=== PATIENT | male | born 1940 | race Two or more races ===

== ENCOUNTER 2017-11-15 05:45 | Inpatient (IN) | payer MEDICARE, MEDICAID ==
[2017-11-15] VITALS (21 sets, daily range): BP systolic 122–161; BP diastolic 69–105
[~2017-11-15] VITALS: Ht 167.6 cm; Wt 95.3 kg
--- NOTE | 2017-11-15 05:57 | Emergency Room Report ---
History of Present Illness General Chief Complaint: Dyspnea/Respdistress Source: Patient Present Illness HPI Is a 77-year-old female with a history of diabetes, high blood pressure, CVA with left-sided weakness. Patient presents via EMS with chief complaint of shortness of breath. She's been having increasing shortness of breath for about a month but acutely worsened tonight. She can't even lay flat. Worse with exertion. Per EMS she has some decreased breath sound and slight wheezing so they put on the bus a treatment. This helped some. Patient denies any syncope. [place] weak and dizzy however. No nausea no vomiting. No chest pain. Does have chest tightness. Does have increasing weight gain for the last month. Allergies: Coded Allergies: No Known Allergies (Unverified , 11/15/17) Patient History Past Medical History: see triage record, old chart reviewed, DM, HTN Past Surgical History: other Pertinent Family History: none Social History: Denies: smoking Now: No Immunizations: other Reviewed Nursing Documentation: PMH: Agreed; PSxH: Agreed Nursing Documentation-PMH Hx Hypertension: Yes - htn Hx Diabetes: Yes - dm II Hx Cerebrovascular Accident: Yes - cva 6 yr ago Review of Systems Eye: Denies: eye pain, blurred vision ENT: Denies: ear pain, nose congestion, throat swelling Respiratory: Reports: shortness of breath; Denies: cough Cardiovascular: Denies: chest pain, palpitations Gastrointestinal: Denies: abdominal pain, diarrhea, nausea, vomiting Musculoskeletal: Denies: back pain, joint pain Skin: Denies: rash Neurological: Denies: headache, numbness Endocrine: Denies: increased thirst, increased urine Hematologic/Lymphatic: Denies: easy bruising All Other Systems: negative except mentioned in HPI Physical Exam Vital Signs Date Time Temp Pulse Resp B/P (MAP) Pulse Ox O2 Delivery O2 Flow Rate FiO2 11/15/17 05:41 98.0 140 27 160/96 97 Nasal Cannula 98.1 vitals with tachycardia and high blood pressure Sp02 EP Interpretation: abnormal General Appearance: moderate distress, obese Head: normocephalic, atraumatic Eyes: bilateral eye PERRL, bilateral eye EOMI ENT: hearing grossly normal, normal pharynx Neck: full range of motion, supple, no meningismus Respiratory: chest non-tender, respiratory distress, decreased breath sounds, rales Cardiovascular #1: no murmur, tachycardia Gastrointestinal: normal bowel sounds, non tender, no mass, no organomegaly, no bruit, non-distended Musculoskeletal: back normal, normal range of motion, swelling - 2+ edema Neurologic: alert, oriented x3, other - left-sided weakness, chronic Psychiatric: mood/affect normal Skin: warm/dry Procedures Critical Care Time Critical Care Time Critical care is mandated in this patient who presented with rapid A. fib/ flutter with CHF. Patient require my urgent intervention to attenuate the risks of metabolic collapse which may lead to cardiovascular collapse and . Critical care time is 35 minutes excluding any reportable procedure. Critical care time included evaluation, multiple reevaluation, looking at old charts, interpreting laboratory and diagnostic data, discussing case with patient and family and consultants, and charting. Medical Decision Making Diagnostic Impression: Primary Impression: Rapid atrial fibrillation Additional Impressions: Acute exacerbation of CHF (congestive heart failure) Qualified Codes: I50.9 - Heart failure, unspecified Hypertension Qualified Codes: I10 - Essential (primary) hypertension ER Course Patient presents with acute CHF and very to rapid A. fib. Rate is not controlled after several boluses of Cardizem. She may need to be on Cardizem drip. Labs pending. Blood pressure stable. I will sign this patient out to Dr. Sheppard for final disposition. EKG Diagnostic Results Rate: tachycardiac Rhythm: other - afib/aflutter ST Segments: other - NSST changes ASA given to the pt in ED: Yes Rhythm Strip Diag. Results Rhythm Strip Time: 06:02 EP Interpretation: yes Rhythm: no PVC's, no ectopy Chest X-Ray Diagnostic Results Chest X-Ray Diagnostic Results : Chest X-Ray Ordered: Yes # of Views/Limited/Complete: 1 View Indication: Shortness of Breath EP Interpretation: Yes Interpretation: no consolidation, no effusion, no pneumothorax, other - CM with chf Impression: Other - chf Electronically Signed by: Raymond Garcia MD Last Vital Signs Date Time Temp Pulse Resp B/P (MAP) Pulse Ox O2 Delivery O2 Flow Rate FiO2 11/15/17 05:41 98.0 140 27 160/96 97 Nasal Cannula 98.1 Status: improved Disposition: ADMITTED INPATIENT Condition: Serious Raymond Garcia MD Nov 15, 2017 05:57
[2017-11-15] MEDS ORDERED: Aspirin Baby 81mg ORAL ONE (06:00)
[2017-11-15] MEDS ORDERED: dilTIAZem HCl 25mg/5ml Inj IVP ONE ×3 (06:00→06:30)
[2017-11-15 06:34] LABS: BASOPHILS % (AUTO) 0.4 % (0.0-2.0); EOSINOPHILS % (AUTO) 1.6 % (0.0-3.0); HEMATOCRIT 43.6 % (37.0-47.0); HEMOGLOBIN 14.6 G/DL (12.0-16.0); MEAN CORPUSCULAR VOLUME 87 FL (80-99); MONOCYTES % (AUTO) 6.9 % (1.0-10.0); NEUTROPHILS % (AUTO) 72.1 % (45.0-75.0); PLATELET COUNT 200 K/UL (150-450); RED BLOOD COUNT 4.99 M/UL (4.20-5.40); RED CELL DISTRIBUTION WIDTH 11.8 % (11.6-14.8); WHITE BLOOD COUNT 11.9 K/UL (4.8-10.8)
--- NOTE | 2017-11-15 06:40 | Diagnostic Imaging Report ---
EXAM: XR Chest, 1 View. CLINICAL HISTORY: SOB TECHNIQUE: Frontal view of the chest. COMPARISON: No relevant prior studies available. FINDINGS: Lungs: Perihilar interstitial opacities bilaterally most consistent with pulmonary edema. No definite airspace consolidation. Pleural spaces: No significant pleural effusion. No pneumothorax. Heart: Mildly enlarged cardiac silhouette. Mediastinum: No mediastinal widening or shift. Bones: Unremarkable. No acute fracture. IMPRESSION: Mild cardiomegaly with bilateral interstitial edema. Findings suggestive of congestive heart failure or volume overload. No definite airspace consolidation or pneumothorax.
[2017-11-15 06:43] LABS: ANION GAP 10 mmol/L (5-15); BLOOD UREA NITROGEN 15 mg/dL (7-18); CALCIUM 8.6 MG/DL (8.5-10.1); CARBON DIOXIDE 25 MMOL/L (21-32); CHLORIDE 104 MMOL/L (98-107); POTASSIUM 3.9 MMOL/L (3.5-5.1); SODIUM 139 MMOL/L (136-145)
[2017-11-15 06:54] LABS: ALANINE AMINOTRANSFERASE 20 U/L (12-78); ALBUMIN 3.4 G/DL (3.4-5.0); ALBUMIN/GLOBULIN RATIO 0.8 (1.0-2.7); ALKALINE PHOSPHATASE 109 U/L (46-116); ASPARTATE AMINO TRANSFERASE 22 U/L (15-37); BILIRUBIN,TOTAL 0.5 MG/DL (0.2-1.0); CREATINE KINASE 68 U/L (26-308)
[2017-11-15 07:22] LABS: APPEARANCE,URINE CLEAR; BILIRUBIN, URINE NEGATIVE (NEGATIVE); COLOR,URINE PALE YELLOW; GLUCOSE, URINE (UA) NEGATIVE (NEGATIVE); KETONES,URINE NEGATIVE (NEGATIVE); LEUKOCYTE ESTERASE ,URINE 1+ (NEGATIVE); NITRITE,URINE NEGATIVE (NEGATIVE); PH,URINE 6 (4.5-8.0); PROTEIN,URINE NEGATIVE (NEGATIVE); UROBILINOGEN,URINE NORMAL MG/DL (0.0-1.0)
[2017-11-15 07:36] LABS: CKMB 1.1 NG/ML (0.0-3.6)
[2017-11-15] MEDS ORDERED: Albuterol/Ipratropium 3ml neb HHN PRN (08:30)
[2017-11-15] MEDS ORDERED: Metoprolol 5mg/5ml Inj IVP PRN (08:30)
[2017-11-15] MEDS ORDERED: Miralax 17gm pkt ORAL PRN (08:30)
[2017-11-15] MEDS ORDERED: Nitroglycerin Subl 0.4mg tab SL PRN (08:30)
[2017-11-15] MEDS ORDERED: dilTIAZem HCl 25mg/5ml Inj IV PRN (08:30)
[2017-11-15] MEDS ORDERED: Digoxin 0.5mg/2ml Inj IVP SCH (10:00)
[2017-11-15] MEDS: Morphine Sulfate 2mg/ml Inj IVP PRN (10:36)
--- NOTE | 2017-11-15 11:45 | History and Physical Report ---
DATE OF ADMISSION: 11/15/2017 TIME: 8 a.m. CONSULTANTS: 1. Glen Mcnally M.D. 2. James Stewart M.D. 3. Pablo Sanford M.D. CHIEF COMPLAINT: Shortness of breath, new onset CHF, atrial flutter, and edema. BRIEF HISTORY: This is a 77-year-old male, who lives at home, presents with one month increased shortness of breath. About a week ago, stopped taking medications. The patient came to [place] last night with increased shortness of breath, diagnosed new onset CHF, atrial flutter, and edema and currently in the ER bed awaiting admission to ICU. REVIEW OF SYSTEMS: No chest pain. Slight short of breath. No nausea, vomiting, or diarrhea. PAST MEDICAL HISTORY: Include hypertension, CHF, diabetes, and edema. PAST SURGICAL HISTORY: None. MEDICATIONS: Include digoxin, pantoprazole, albuterol, nitroglycerin, morphine, polyethylene, Zofran, diltiazem, metoprolol, aspirin, and furosemide. ALLERGIES: None. SOCIAL HISTORY: No smoke. Positive alcohol. No intravenous drug abuse. FAMILY HISTORY: Noncontributory. PHYSICAL EXAMINATION: GENERAL: Slightly anxious in bed, O2 NC, slight short of breath. VITAL SIGNS: Temperature is 98, pulse 137, respirations 26, and blood pressure 134/82. CARDIOVASCULAR: Distant tachycardia. LUNGS: Distant and clear. ABDOMEN: Bowel sounds positive. Nontender. Nondistended. EXTREMITIES: No cyanosis, clubbing, or edema. NEUROLOGIC: The patient moves all extremities, slightly weak. LABORATORY AND DIAGNOSTIC DATA: Labs at this time show white count 11.9, otherwise CBC is normal. BMP show glucose 237, otherwise troponin 0.028. BNP is 2447 and INR is pending. Urinalysis 1+ leukocyte esterase. ASSESSMENT: 1. New onset CHF. 2. Shortness of breath. 3. Hypertension. 4. Diabetes. 5. Atrial flutter. 6. UTI. 7. Edema. PLAN: 1. O2 and Pulmonary treatment. 2. Antibiotics per Infectious Disease. 3. Blood pressure and blood sugar control. 4. Dietary followup. 5. CBC and BMP in the morning. Vincent Adam D.O. DR: PURA JOB#: [id number] CC:
--- NOTE | 2017-11-15 12:03 | Pulmonolgy Critical Care Note ---
Critical Care - Asmt/Plan Problems: (1) Acute exacerbation of CHF (congestive heart failure) (2) Rapid atrial fibrillation (3) Hypertension (4) Diabetes Respiratory: monitor respiratory rate, adjust FIO2, CXR Cardiac: continue to monitor HR/BP, other - digoxin IV, try to dc cardizem drip and use Cardizem IV prn Renal: F/U I&O Gastrointestinal: continue feedings/current rate Endocrine: monitor blood sugar Hematologic: monitor H/H, transfuse if hgb<8.5 Neurologic: PRN Ativan, PRN Morphine, keep patient comfortable Prophylaxis: Heparin Disposition: keep in ICU Notes Reviewed: night guard, cardio Critical Care - Objective Last 24 Hour Vital Signs Date Time Temp Pulse Resp B/P (MAP) Pulse Ox O2 Delivery O2 Flow Rate FiO2 11/15/17 11:30 98.0 97 27 137/80 97 Nasal Cannula 6.0 98.0 82 11/15/17 11:15 98.0 97 27 136/70 97 Nasal Cannula 6.0 98.0 82 11/15/17 11:06 98.0 11/15/17 11:02 98.0 97 27 126/69 97 Nasal Cannula 6.0 98.0 82 11/15/17 10:45 208.6 97 27 145/88 97 Nasal Cannula 6.0 208.6 88 11/15/17 10:36 98.1 11/15/17 10:30 98.1 97 27 133/90 97 Nasal Cannula 6.0 98.1 96 11/15/17 10:15 98.1 97 27 135/87 97 Nasal Cannula 6.0 98.1 96 11/15/17 10:05 138 11/15/17 10:00 98.1 96 27 133/80 97 Nasal Cannula 6.0 98.1 96 11/15/17 09:45 98.1 96 27 133/80 97 Nasal Cannula 6.0 98.1 103 11/15/17 09:30 98.1 136 27 137/77 97 Nasal Cannula 6.0 98.1 103 11/15/17 09:15 98.1 136 27 135/80 97 Nasal Cannula 6.0 98.1 103 11/15/17 09:00 98.1 136 27 135/80 97 Nasal Cannula 6.0 98.1 109 11/15/17 08:45 98.1 136 27 138/97 97 Nasal Cannula 6.0 98.1 11/15/17 08:30 98.1 137 27 134/82 97 Nasal Cannula 6.0 98.1 11/15/17 08:16 98.1 144 27 138/82 97 Nasal Cannula 6.0 98.1 11/15/17 08:00 98.1 144 27 122/77 97 Nasal Cannula 6.0 98.1 11/15/17 08:00 139 122/77 11/15/17 07:03 144 27 Nasal Cannula 11/15/17 06:54 140 147/81 11/15/17 06:18 141 122/66 11/15/17 06:13 144 161/105 11/15/17 05:45 98.1 144 27 161/105 97 Nasal Cannula 6.0 98.1 11/15/17 05:41 98.0 140 27 160/96 97 Nasal Cannula 98.1 Status: awake Condition: critical HEENT: atraumatic Lungs: clear Heart: HR/BP unstable Abdomen: active bowel sounds Extremities: edema Critical Care - Subjective ROS Limited/Unobtainable: No Interval Events: pt seen in ER, suppose to go to ICU on cardizem drip Condition: critical Sputum Amount: None Drips: cardizem drip Labs: Laboratory Tests Test 11/15/17 06:00 11/15/17 06:50 White Blood Count 11.9 K/UL (4.8-10.8) H Red Blood Count 4.99 M/UL (4.20-5.40) Hemoglobin 14.6 G/DL (12.0-16.0) Hematocrit 43.6 % (37.0-47.0) Mean Corpuscular Volume 87 FL (80-99) Mean Corpuscular Hemoglobin 29.4 PG (27.0-31.0) Mean Corpuscular Hemoglobin Concent 33.6 G/DL (32.0-36.0) Red Cell Distribution Width 11.8 % (11.6-14.8) Platelet Count 200 K/UL (150-450) Mean Platelet Volume 6.7 FL (6.5-10.1) Neutrophils (%) (Auto) 72.1 % (45.0-75.0) Lymphocytes (%) (Auto) 19.0 % (20.0-45.0) L Monocytes (%) (Auto) 6.9 % (1.0-10.0) Eosinophils (%) (Auto) 1.6 % (0.0-3.0) Basophils (%) (Auto) 0.4 % (0.0-2.0) Sodium Level 139 MMOL/L (136-145) Potassium Level 3.9 MMOL/L (3.5-5.1) Chloride Level 104 MMOL/L (98-107) Carbon Dioxide Level 25 MMOL/L (21-32) Anion Gap 10 mmol/L (5-15) Blood Urea Nitrogen 15 mg/dL (7-18) Creatinine 1.0 MG/DL (0.55-1.30) Estimat Glomerular Filtration Rate mL/min (>60) Glucose Level 237 MG/DL (74-106) H Calcium Level 8.6 MG/DL (8.5-10.1) Total Bilirubin 0.5 MG/DL (0.2-1.0) Aspartate Amino Transf (AST/SGOT) 22 U/L (15-37) Alanine Aminotransferase (ALT/SGPT) 20 U/L (12-78) Alkaline Phosphatase 109 U/L (46-116) Total Creatine Kinase 68 U/L (26-308) Creatine Kinase MB 1.1 NG/ML (0.0-3.6) Creatine Kinase MB Relative Index 1.6 Troponin I 0.028 ng/mL (0.000-0.056) Pro-B-Type Natriuretic Peptide 2447 pg/mL (0-125) H Total Protein 7.5 G/DL (6.4-8.2) Albumin 3.4 G/DL (3.4-5.0) Globulin 4.1 g/dL Albumin/Globulin Ratio 0.8 (1.0-2.7) L Urine Color Pale yellow Urine Appearance Clear Urine pH 6 (4.5-8.0) Urine Specific [place] 1.005 (1.005-1.035) Urine Protein Negative (NEGATIVE) Urine Glucose (UA) Negative (NEGATIVE) Urine Ketones Negative (NEGATIVE) Urine Blood Negative (NEGATIVE) Urine Nitrite Negative (NEGATIVE) Urine Bilirubin Negative (NEGATIVE) Urine Urobilinogen Normal MG/DL (0.0-1.0) Urine Leukocyte Esterase 1+ (NEGATIVE) H Urine RBC 0 /HPF (0 - 0) Urine WBC 2-4 /HPF (0 - 0) Urine Squamous Epithelial Cells None /LPF (NONE/OCC) Urine Bacteria None /HPF (NONE) Glen Mcnally MD Nov 15, 2017 12:03
[2017-11-15] MEDS ORDERED: Morphine Sulfate 4mg/ml Inj (IV USE ONLY) IVP ONE (13:30)
[2017-11-15] MEDS ORDERED: JANUMET XR 50-1 EAC1 ORAL (16:21)
[2017-11-15] MEDS ORDERED: ENALAPRIL MALEAT5 MG ORAL (16:28)
[2017-11-15] MEDS ORDERED: FINASTERIDE5 MG ORAL (16:28)
[2017-11-15] MEDS ORDERED: ASPIR 8181 MG ORAL (16:28)
[2017-11-15] MEDS ORDERED: TAMSULOSIN HCL0.4 MG ORAL (16:28)
[2017-11-15] MEDS ORDERED: SYNTHROID100 MCG ORAL (16:28)
--- NOTE | 2017-11-15 16:56 | Cardiac Electrophysiology PN ---
Subjective Subjective [id number] Objective Last 24 Hour Vital Signs Date Time Temp Pulse Resp B/P (MAP) Pulse Ox O2 Delivery O2 Flow Rate FiO2 11/15/17 16:14 98.4 92 24 135/88 96 Nasal Cannula 2.0 98.4 11/15/17 16:12 98.4 92 24 156/84 (108) 96 98.4 11/15/17 15:32 Nasal Cannula 2.0 11/15/17 13:45 98.0 11/15/17 13:27 98.0 93 27 137/80 97 Nasal Cannula 6.0 98.0 82 11/15/17 12:00 98.0 97 27 132/88 97 Nasal Cannula 6.0 98.0 82 11/15/17 11:45 98.0 97 27 133/73 97 Nasal Cannula 6.0 98.0 82 11/15/17 11:30 98.0 97 27 137/80 97 Nasal Cannula 6.0 98.0 82 11/15/17 11:15 98.0 97 27 136/70 97 Nasal Cannula 6.0 98.0 82 11/15/17 11:06 98.0 11/15/17 11:02 98.0 97 27 126/69 97 Nasal Cannula 6.0 98.0 82 11/15/17 10:45 208.6 97 27 145/88 97 Nasal Cannula 6.0 208.6 88 11/15/17 10:36 98.1 11/15/17 10:30 98.1 97 27 133/90 97 Nasal Cannula 6.0 98.1 96 11/15/17 10:15 98.1 97 27 135/87 97 Nasal Cannula 6.0 98.1 96 11/15/17 10:05 138 11/15/17 10:00 98.1 96 27 133/80 97 Nasal Cannula 6.0 98.1 96 11/15/17 09:45 98.1 96 27 133/80 97 Nasal Cannula 6.0 98.1 103 11/15/17 09:30 98.1 136 27 137/77 97 Nasal Cannula 6.0 98.1 103 11/15/17 09:15 98.1 136 27 135/80 97 Nasal Cannula 6.0 98.1 103 11/15/17 09:00 98.1 136 27 135/80 97 Nasal Cannula 6.0 98.1 109 11/15/17 08:45 98.1 136 27 138/97 97 Nasal Cannula 6.0 98.1 11/15/17 08:30 98.1 137 27 134/82 97 Nasal Cannula 6.0 98.1 11/15/17 08:16 98.1 144 27 138/82 97 Nasal Cannula 6.0 98.1 11/15/17 08:00 98.1 144 27 122/77 97 Nasal Cannula 6.0 98.1 11/15/17 08:00 139 122/77 11/15/17 07:03 144 27 Nasal Cannula 11/15/17 06:54 140 147/81 11/15/17 06:18 141 122/66 11/15/17 06:13 144 161/105 11/15/17 05:45 98.1 144 27 161/105 97 Nasal Cannula 6.0 98.1 11/15/17 05:41 98.0 140 27 160/96 97 Nasal Cannula 98.1 Laboratory Tests Test 11/15/17 06:00 11/15/17 06:50 White Blood Count 11.9 K/UL (4.8-10.8) H Red Blood Count 4.99 M/UL (4.20-5.40) Hemoglobin 14.6 G/DL (12.0-16.0) Hematocrit 43.6 % (37.0-47.0) Mean Corpuscular Volume 87 FL (80-99) Mean Corpuscular Hemoglobin 29.4 PG (27.0-31.0) Mean Corpuscular Hemoglobin Concent 33.6 G/DL (32.0-36.0) Red Cell Distribution Width 11.8 % (11.6-14.8) Platelet Count 200 K/UL (150-450) Mean Platelet Volume 6.7 FL (6.5-10.1) Neutrophils (%) (Auto) 72.1 % (45.0-75.0) Lymphocytes (%) (Auto) 19.0 % (20.0-45.0) L Monocytes (%) (Auto) 6.9 % (1.0-10.0) Eosinophils (%) (Auto) 1.6 % (0.0-3.0) Basophils (%) (Auto) 0.4 % (0.0-2.0) Sodium Level 139 MMOL/L (136-145) Potassium Level 3.9 MMOL/L (3.5-5.1) Chloride Level 104 MMOL/L (98-107) Carbon Dioxide Level 25 MMOL/L (21-32) Anion Gap 10 mmol/L (5-15) Blood Urea Nitrogen 15 mg/dL (7-18) Creatinine 1.0 MG/DL (0.55-1.30) Estimat Glomerular Filtration Rate mL/min (>60) Glucose Level 237 MG/DL (74-106) H Calcium Level 8.6 MG/DL (8.5-10.1) Total Bilirubin 0.5 MG/DL (0.2-1.0) Aspartate Amino Transf (AST/SGOT) 22 U/L (15-37) Alanine Aminotransferase (ALT/SGPT) 20 U/L (12-78) Alkaline Phosphatase 109 U/L (46-116) Total Creatine Kinase 68 U/L (26-308) Creatine Kinase MB 1.1 NG/ML (0.0-3.6) Creatine Kinase MB Relative Index 1.6 Troponin I 0.028 ng/mL (0.000-0.056) Pro-B-Type Natriuretic Peptide 2447 pg/mL (0-125) H Total Protein 7.5 G/DL (6.4-8.2) Albumin 3.4 G/DL (3.4-5.0) Globulin 4.1 g/dL Albumin/Globulin Ratio 0.8 (1.0-2.7) L Urine Color Pale yellow Urine Appearance Clear Urine pH 6 (4.5-8.0) Urine Specific [place] 1.005 (1.005-1.035) Urine Protein Negative (NEGATIVE) Urine Glucose (UA) Negative (NEGATIVE) Urine Ketones Negative (NEGATIVE) Urine Blood Negative (NEGATIVE) Urine Nitrite Negative (NEGATIVE) Urine Bilirubin Negative (NEGATIVE) Urine Urobilinogen Normal MG/DL (0.0-1.0) Urine Leukocyte Esterase 1+ (NEGATIVE) H Urine RBC 0 /HPF (0 - 0) Urine WBC 2-4 /HPF (0 - 0) Urine Squamous Epithelial Cells None /LPF (NONE/OCC) Urine Bacteria None /HPF (NONE) Pablo Sanford MD Nov 15, 2017 16:56
[2017-11-15] MEDS: NovoLOG Insulin Flexpen SUBQ SCH ×2 (17:33→21:05)
[2017-11-15] MEDS ORDERED: Heparin 25,000u/D5W 500ml 500 ML IV SCH (18:01)
[2017-11-15] MEDS: Metoprolol 25mg tab ORAL SCH (21:03)
[2017-11-16] VITALS: BP 159/91
[2017-11-16 04:00] VITALS: BP 140/91
[2017-11-16] MEDS: NovoLOG Insulin Flexpen SUBQ SCH ×4 (06:18→20:44)
[2017-11-16 08:00] VITALS: BP 159/102
[2017-11-16 08:13] LABS: BASOPHILS % (AUTO) 0.7 % (0.0-2.0); HEMATOCRIT 42.7 % (42.0-52.0); HEMOGLOBIN 14.5 G/DL (14.2-18.0); MEAN CORPUSCULAR VOLUME 86 FL (80-99); MONOCYTES % (AUTO) 8.7 % (1.0-10.0); NEUTROPHILS % (AUTO) 57.6 % (45.0-75.0); PLATELET COUNT 182 K/UL (150-450); RED BLOOD COUNT 4.95 M/UL (4.70-6.10); RED CELL DISTRIBUTION WIDTH 11.4 % (11.6-14.8); WHITE BLOOD COUNT 9.4 K/UL (4.8-10.8)
[2017-11-16 08:41] LABS: INR 1.1 (0.9-1.1)
[2017-11-16 08:46] LABS: CHOLESTEROL 155 MG/DL (< 200); HDL CHOLESTEROL 62 MG/DL (40-60); TRIGLYCERIDES 28 MG/DL (30-150)
--- NOTE | 2017-11-16 08:48 | General Progress Note ---
Assessment/Plan Problem List: (1) Edema ICD Codes: R60.9 - Edema, unspecified SNOMED: 128951896, 915608714 (2) Diabetes ICD Codes: E11.9 - Type 2 diabetes mellitus without complications SNOMED: 57018290 (3) Hypertension ICD Codes: I10 - Essential (primary) hypertension SNOMED: 11699343 Qualifiers: Qualified Codes: I10 - Essential (primary) hypertension (4) Acute exacerbation of CHF (congestive heart failure) ICD Codes: I50.9 - Heart failure, unspecified SNOMED: 76646480 Qualifiers: Qualified Codes: I50.9 - Heart failure, unspecified (5) Rapid atrial fibrillation ICD Codes: I48.91 - Unspecified atrial fibrillation SNOMED: 509636370 Status: unchanged Assessment/Plan o2 pulm tx abx ot pt diet cbc bmp am Subjective Constitutional: Reports: weakness Respiratory: Reports: shortness of breath Allergies: Coded Allergies: No Known Allergies (Unverified , 11/15/17) All Systems: reviewed and negative except above Subjective o2nc calm Objective Last 24 Hour Vital Signs Date Time Temp Pulse Resp B/P (MAP) Pulse Ox O2 Delivery O2 Flow Rate FiO2 11/16/17 04:00 97.0 98 17 140/91 (107) 92 97.0 11/16/17 04:00 103 11/16/17 00:00 72 11/16/17 00:00 97.9 97 17 159/91 (113) 94 97.9 11/15/17 21:03 92 135/88 11/15/17 21:00 Nasal Cannula 2.0 11/15/17 20:00 114 11/15/17 20:00 97.7 73 17 133/78 (96) 93 97.7 11/15/17 16:14 98.4 92 24 135/88 96 Nasal Cannula 2.0 98.4 11/15/17 16:12 98.4 92 24 156/84 (108) 96 98.4 11/15/17 16:00 93 11/15/17 15:32 Nasal Cannula 2.0 11/15/17 13:45 98.0 11/15/17 13:27 98.0 93 27 137/80 97 Nasal Cannula 6.0 98.0 82 11/15/17 12:00 98.0 97 27 132/88 97 Nasal Cannula 6.0 98.0 82 11/15/17 11:45 98.0 97 27 133/73 97 Nasal Cannula 6.0 98.0 82 11/15/17 11:30 98.0 97 27 137/80 97 Nasal Cannula 6.0 98.0 82 11/15/17 11:15 98.0 97 27 136/70 97 Nasal Cannula 6.0 98.0 82 11/15/17 11:06 98.0 11/15/17 11:02 98.0 97 27 126/69 97 Nasal Cannula 6.0 98.0 82 11/15/17 10:45 208.6 97 27 145/88 97 Nasal Cannula 6.0 208.6 88 11/15/17 10:36 98.1 11/15/17 10:30 98.1 97 27 133/90 97 Nasal Cannula 6.0 98.1 96 11/15/17 10:15 98.1 97 27 135/87 97 Nasal Cannula 6.0 98.1 96 11/15/17 10:05 138 11/15/17 10:00 98.1 96 27 133/80 97 Nasal Cannula 6.0 98.1 96 11/15/17 09:45 98.1 96 27 133/80 97 Nasal Cannula 6.0 98.1 103 11/15/17 09:30 98.1 136 27 137/77 97 Nasal Cannula 6.0 98.1 103 11/15/17 09:15 98.1 136 27 135/80 97 Nasal Cannula 6.0 98.1 103 11/15/17 09:00 98.1 136 27 135/80 97 Nasal Cannula 6.0 98.1 109 Intake and Output 11/15/17 11/16/17 19:00 07:00 Intake Total 220 ml Output Total 300 ml 2500 ml Balance -80 ml -2500 ml Intake Oral 220 ml Output Urine Total 300 ml 2500 ml # Bowel Movements 2 Laboratory Tests 11/15/17 17:50: Prothrombin Time 10.8, Prothromb Time International Ratio 1.0, Activated Partial Thromboplast Time 28 11/16/17 00:50: Activated Partial Thromboplast Time 84H 11/16/17 06:25: Prothrombin Time 11.3, Prothromb Time International Ratio 1.1, Activated Partial Thromboplast Time 105H, White Blood Count 9.4, Red Blood Count 4.95, Hemoglobin 14.5, Hematocrit 42.7, Mean Corpuscular Volume 86, Mean Corpuscular Hemoglobin 29.3, Mean Corpuscular Hemoglobin Concent 34.0, Red Cell Distribution Width 11.4L, Platelet Count 182, Mean Platelet Volume 5.7L, Neutrophils (%) (Auto) 57.6, Lymphocytes (%) (Auto) 30.0, Monocytes (%) (Auto) 8.7, Eosinophils (%) (Auto) 3.0, Basophils (%) (Auto) 0.7, Sodium Level [Pending ], Potassium Level [Pending], Chloride Level [Pending], Carbon Dioxide Level [ Pending], Blood Urea Nitrogen [Pending], Creatinine [Pending], Estimat Glomerular Filtration Rate [Pending], Glucose Level [Pending], Calcium Level [ Pending], Troponin I [Pending], C-Reactive Protein, Quantitative [Pending], Pro- B-Type Natriuretic Peptide [Pending], Triglycerides Level [Pending], Cholesterol Level [Pending], LDL Cholesterol [Pending], HDL Cholesterol [Pending ], Cholesterol/HDL Ratio [Pending], Thyroid Stimulating Hormone (TSH) [Pending] , Digoxin Level [Pending] Height (Feet): 5 Height (Inches): 6.00 Weight (Pounds): 210 General Appearance: lethargic EENT: normal ENT inspection Neck: normal alignment Cardiovascular: normal peripheral pulses, normal rate Respiratory/Chest: chest wall non-tender, decreased breath sounds Abdomen: normal bowel sounds, non tender, soft Extremities: normal inspection Edema: 1+ Arm (L), 1+ Arm (R), 1+ Leg (L), 1+ Leg (R), 1+ Pedal (L), 1+ Pedal ( R), 1+ Generalized Edema: trace edema Neurologic: responsive, motor weakness Skin: normal pigmentation, warm/dry Vincent Adam DO Nov 16, 2017 08:48
[2017-11-16 08:53] LABS: ANION GAP 11 mmol/L (5-15); BLOOD UREA NITROGEN 15 mg/dL (7-18); CALCIUM 8.6 MG/DL (8.5-10.1); CARBON DIOXIDE 27 MMOL/L (21-32); CHLORIDE 103 MMOL/L (98-107); POTASSIUM 3.7 MMOL/L (3.5-5.1); SODIUM 141 MMOL/L (136-145)
[2017-11-16] MEDS ORDERED: Digoxin 0.5mg/2ml Inj IVP SCH (09:00)
[2017-11-16] MEDS ORDERED: Heparin 25,000u/D5W 500ml 500 ML IV SCH (09:00)
[2017-11-16] MEDS: Metoprolol 25mg tab ORAL SCH ×2 (09:42→20:41)
[2017-11-16 12:00] VITALS: BP 133/75
--- NOTE | 2017-11-16 13:45 | Consultation ---
DATE OF CONSULTATION: 11/15/2017 CONSULTING PHYSICIAN: Pablo Sanford M.D. REFERRING PHYSICIAN: Vincent Adam D.O. REASON FOR CONSULTATION: Atrial fibrillation with rapid ventricular response. HISTORY OF PRESENT ILLNESS: The patient is 77 years old, who lives at home, presented to the emergency room with increasing shortness of breath, lower extremity edema, and palpitation. This started about a week ago. The patient was diagnosed with atrial fibrillation with ventricular response and received Cardizem. The patient was admitted to telemetry and a Cardiology consultation was obtained for further evaluation and management. REVIEW OF SYSTEMS: Review of systems was negative other than what was mentioned in the history of present illness. PAST MEDICAL HISTORY: Hypertension, diabetes, congestive heart failure, and edema. FAMILY HISTORY: Noncontributory. SOCIAL HISTORY: The patient lives at home. Does not smoke or drink alcohol. PHYSICAL EXAMINATION: VITAL SIGNS: Blood pressure 135/88, pulse 92, respirations 24, and temperature 98.4 degrees. HEAD AND NECK: Showed no JVD. LUNGS: Coarse rhonchi. CARDIOVASCULAR: Shows irregularly irregular, tachycardic. S1 and S2 with no gallop or murmur. ABDOMEN: Soft. EXTREMITIES: 1+ pitting edema. LABORATORY DATA: White count 11.9, hemoglobin 14.7, hematocrit 43.6, and platelet count 200,000. Sodium 139, potassium 3.9, BUN 15, and creatinine 1. Troponin is negative. Glucose 237. BNP 2447. ASSESSMENT AND PLAN: 1. Atrial fibrillation with rapid ventricular response. Heart rate is better. Continue digoxin 0.25 mg p.o. daily in addition metoprolol 50 mg b.i.d. was added to the medical regimen. We will get a digoxin level. We will get an echocardiogram as well as thyroid function test. 2. Congestive heart failure. Echocardiogram is pending. We will increase Lasix to 40 mg IV b.i.d. 3. Hypertension. Continue digoxin, metoprolol, and Lasix. Thank you very much, Dr. Adam, for allowing me to participate in the care of this patient. Please do not hesitate to contact me for any questions regarding my evaluation. Pablo Sanford M.D. DR: KAREN JOB#: [id number] CC:
--- NOTE | 2017-11-16 14:15 | Pulmonology Progress Note ---
Assessment/Plan Assessment/Plan PULMONARY PROGRESS NOTE HPI Is a 77-year-old female with a history of diabetes, high blood pressure, CVA with left-sided weakness. Patient presents via EMS with chief complaint of shortness of breath. She's been having increasing shortness of breath for about a month but acutely worsened tonight. She can't even lay flat. Worse with exertion. Per EMS she has some decreased breath sound and slight wheezing so they put on the bus a treatment. This helped some. Patient denies any syncope. [place] weak and dizzy however. No nausea no vomiting. No chest pain. Does have chest tightness. Does have increasing weight gain for the last month. Being followed by Cardiology, on treatment for Atrial Flutter, CHF, Hypertension. Allergies: Coded Allergies: No Known Allergies (Unverified , 11/15/17) Patient History Past Medical History: CHF, DM, HTN Past Surgical History: other Pertinent Family History: none Social History: Denies: smoking Now: No Immunizations: other Reviewed Nursing Documentation: PMH: Agreed; PSxH: Agreed Nursing Documentation-PMH Hx Hypertension: Yes - htn Hx Diabetes: Yes - dm II Hx Cerebrovascular Accident: Yes - cva 6 yr ago Review of Systems Eye: Denies: eye pain, blurred vision ENT: Denies: ear pain, nose congestion, throat swelling Respiratory: Reports: shortness of breath; Denies: cough Cardiovascular: Denies: chest pain, palpitations Gastrointestinal: Denies: abdominal pain, diarrhea, nausea, vomiting Musculoskeletal: Denies: back pain, joint pain Skin: Denies: rash Neurological: Denies: headache, numbness Endocrine: Denies: increased thirst, increased urine Hematologic/Lymphatic: Denies: easy bruising All Other Systems: negative except mentioned in HPI Physical Exam Vital Signs Current VSS Date Time Temp Pulse Resp B/P (MAP) Pulse Ox O2 Delivery O2 Flow Rate FiO2 11/15/17 05:41 98.0 140 27 160/96 97 Nasal Cannula 98.1 vitals with tachycardia and high blood pressure General Appearance: moderate distress, obese Head: normocephalic, atraumatic Eyes: bilateral eye PERRL, bilateral eye EOMI ENT: hearing grossly normal, normal pharynx Neck: full range of motion, supple, no meningismus Respiratory: chest non-tender, respiratory distress, decreased breath sounds, rales Cardiovascular #1: no murmur, tachycardia Gastrointestinal: normal bowel sounds, non tender, no mass, no organomegaly, no bruit, non-distended Musculoskeletal: back normal, normal range of motion, swelling - 2+ edema Neurologic: alert, oriented x3, other - left-sided weakness, chronic Psychiatric: mood/affect normal Skin: warm/dry Medical Decision Making Diagnostic Impression: Rapid atrial fibrillation/flutter Acute exacerbation of CHF (congestive heart failure) Hypertension DM Previous CVA Plan Rate control/diuresis per Cardiology O2 for sats 90-96% PPX [employer] meds EKG Diagnostic Results Rate: tachycardiac Rhythm: other - afib/aflutter ST Segments: other - NSST changes ASA given to the pt in ED: Yes Rhythm Strip Diag. Results Rhythm Strip Time: 06:02 EP Interpretation: yes Rhythm: no PVC's, no ectopy Chest X-Ray Diagnostic Results Chest X-Ray Diagnostic Results : Chest X-Ray Ordered: Yes # of Views/Limited/Complete: 1 View Indication: Shortness of Breath EP Interpretation: Yes Interpretation: no consolidation, no effusion, no pneumothorax, other - CM with chf Impression: Other - chf Subjective ROS Limited/Unobtainable: No Allergies: Coded Allergies: No Known Allergies (Unverified , 11/15/17) Objective Last 24 Hour Vital Signs Date Time Temp Pulse Resp B/P (MAP) Pulse Ox O2 Delivery O2 Flow Rate FiO2 11/16/17 12:00 97.9 76 20 133/75 (94) 93 97.9 11/16/17 09:43 138 159/102 11/16/17 09:42 138 159/102 11/16/17 09:42 134 11/16/17 09:00 Nasal Cannula 2.0 11/16/17 08:00 98.2 134 20 159/102 (121) 96 98.2 11/16/17 04:00 97.0 98 17 140/91 (107) 92 97.0 11/16/17 04:00 103 11/16/17 00:00 72 11/16/17 00:00 97.9 97 17 159/91 (113) 94 97.9 11/15/17 21:03 92 135/88 11/15/17 21:00 Nasal Cannula 2.0 11/15/17 20:00 114 11/15/17 20:00 97.7 73 17 133/78 (96) 93 97.7 11/15/17 16:14 98.4 92 24 135/88 96 Nasal Cannula 2.0 98.4 11/15/17 16:12 98.4 92 24 156/84 (108) 96 98.4 11/15/17 16:00 93 11/15/17 15:32 Nasal Cannula 2.0 Intake and Output 11/15/17 11/16/17 19:00 07:00 Intake Total 220 ml Output Total 300 ml 2500 ml Balance -80 ml -2500 ml Intake Oral 220 ml Output Urine Total 300 ml 2500 ml # Bowel Movements 2 Laboratory Tests 11/15/17 17:50: Prothrombin Time 10.8, Prothromb Time International Ratio 1.0, Activated Partial Thromboplast Time 28 11/16/17 00:50: Activated Partial Thromboplast Time 84H 11/16/17 06:25: Prothrombin Time 11.3, Prothromb Time International Ratio 1.1, Activated Partial Thromboplast Time 105H, White Blood Count 9.4, Red Blood Count 4.95, Hemoglobin 14.5, Hematocrit 42.7, Mean Corpuscular Volume 86, Mean Corpuscular Hemoglobin 29.3, Mean Corpuscular Hemoglobin Concent 34.0, Red Cell Distribution Width 11.4L, Platelet Count 182, Mean Platelet Volume 5.7L, Neutrophils (%) (Auto) 57.6, Lymphocytes (%) (Auto) 30.0, Monocytes (%) (Auto) 8.7, Eosinophils (%) (Auto) 3.0, Basophils (%) (Auto) 0.7, Sodium Level 141, Potassium Level 3.7, Chloride Level 103, Carbon Dioxide Level 27, Anion Gap 11, Blood Urea Nitrogen 15, Creatinine 1.0, Estimat Glomerular Filtration Rate , Glucose Level 173H, Calcium Level 8.6, Troponin I 0.013, C-Reactive Protein, Quantitative 3.5H, Pro-B-Type Natriuretic Peptide 2881H, Triglycerides Level 28L , Cholesterol Level 155, LDL Cholesterol 80, HDL Cholesterol 62H, Cholesterol/ HDL Ratio 2.5L, Thyroid Stimulating Hormone (TSH) 1.691, Digoxin Level 0.7 Current Medications Medications (Trade) Dose Ordered Sig/Raheem Route PRN Reason Start Time Stop Time Status Last Admin Dose Admin Acetaminophen (Tylenol) 650 mg Q4H PRN ORAL FEVER 10/6/18 08:30 12/15/17 08:29 Albuterol/ Ipratropium (Albuterol/ Ipratropium) 3 ml EVERY 4 HOURS PRN HHN Shortness of Breath 11/15/17 08:30 11/20/17 08:29 Dextrose (Dextrose 50%) 25 ml Q30M PRN IV Hypoglycemia 11/15/17 16:15 12/15/17 16:14 Dextrose (Dextrose 50%) 50 ml Q30M PRN IV Hypoglycemia 11/15/17 16:15 12/15/17 16:14 Digoxin (Lanoxin) 0.25 mg DAILY ORAL 11/16/17 09:00 12/16/17 08:59 11/16/17 09:42 Diltiazem HCl (Cardizem) 10 mg EVERY HOUR PRN IV heart rate more than 120, 11/15/17 08:30 12/15/17 08:29 11/16/17 09:43 Furosemide (Lasix) 40 mg BID IV 11/15/17 18:00 12/15/17 16:59 11/16/17 09:42 Heparin Sodium/ Dextrose 500 ml @ 30.481 mls/ hr ADJUST PER PROTOCOL IV 11/16/17 09:00 12/16/17 08:59 11/16/17 09:41 Insulin Aspart (NovoLOG) BEFORE MEALS AND HS SUBQ 11/15/17 16:30 12/15/17 16:29 11/16/17 11:59 Metoprolol Tartrate (Lopressor) 5 mg EVERY HOUR PRN IVP heart rate more than 140 11/15/17 08:30 12/15/17 08:29 Metoprolol Tartrate (Lopressor) 25 mg Q12HR ORAL 11/15/17 21:00 12/15/17 20:59 11/16/17 09:42 Morphine Sulfate (Morphine Sulfate) 2 mg EVERY 4 HOURS PRN IVP severe Pain (Pain Scale 7-10) 11/15/17 08:30 11/22/17 08:29 11/15/17 10:36 Nitroglycerin (Ntg) 0.4 mg Q5M PRN SL Prn Chest Pain 11/15/17 08:30 12/15/17 08:29 Ondansetron HCl (Zofran) 4 mg Q6H PRN IVP Nausea & Vomiting 11/15/17 08:30 12/15/17 08:29 Pantoprazole (Protonix) 40 mg DAILY ORAL 11/15/17 11:00 12/15/17 10:59 11/16/17 09:42 Polyethylene Glycol (Miralax) 17 gm DAILYPRN PRN ORAL Constipation 11/15/17 08:30 12/15/17 08:29 11/16/17 09:41 Temazepam (Restoril) 15 mg HSPRN PRN ORAL Insomnia 11/15/17 08:30 11/22/17 08:29 Mikey Ramirez MD Nov 16, 2017 14:15
[2017-11-16 16:00] VITALS: BP 157/74
[2017-11-16 20:00] VITALS: BP 146/98
--- NOTE | 2017-11-16 21:20 | Consultation ---
Consult Note Consult Note ID [id number] Spenser Toure MD Nov 16, 2017 21:20
[2017-11-17] VITALS: BP 134/84
[2017-11-17] MEDS: Cephalexin 500mg cap ORAL SCH ×4 (00:11→17:10)
[2017-11-17 04:00] VITALS: BP 159/93
[2017-11-17 04:51] LABS: BASOPHILS % (AUTO) 0.9 % (0.0-2.0); EOSINOPHILS % (AUTO) 2.7 % (0.0-3.0); HEMATOCRIT 44.9 % (42.0-52.0); HEMOGLOBIN 15.4 G/DL (14.2-18.0); LYMPHOCYTES % (AUTO) 33.6 % (20.0-45.0); MEAN CORPUSCULAR VOLUME 85 FL (80-99); MONOCYTES % (AUTO) 9.6 % (1.0-10.0); NEUTROPHILS % (AUTO) 53.3 % (45.0-75.0); PLATELET COUNT 208 K/UL (150-450); RED BLOOD COUNT 5.26 M/UL (4.70-6.10); RED CELL DISTRIBUTION WIDTH 11.3 % (11.6-14.8); WHITE BLOOD COUNT 8.4 K/UL (4.8-10.8)
[2017-11-17 04:58] LABS: ANION GAP 7 mmol/L (5-15); BLOOD UREA NITROGEN 18 mg/dL (7-18); CALCIUM 8.6 MG/DL (8.5-10.1); CARBON DIOXIDE 32 MMOL/L (21-32); CHLORIDE 100 MMOL/L (98-107); CREATININE 1.2 MG/DL (0.55-1.30); POTASSIUM 3.4 MMOL/L (3.5-5.1); SODIUM 139 MMOL/L (136-145)
[2017-11-17] MEDS ORDERED: Heparin 25,000u/D5W 500ml 500 ML IV SCH (05:30)
[2017-11-17] MEDS: NovoLOG Insulin Flexpen SUBQ SCH ×4 (05:44→20:32)
[2017-11-17 08:00] VITALS: BP 132/91
[2017-11-17] MEDS: Metoprolol 25mg tab ORAL SCH ×2 (08:53→20:30)
--- NOTE | 2017-11-17 11:45 | General Progress Note ---
Assessment/Plan Problem List: (1) Edema ICD Codes: R60.9 - Edema, unspecified SNOMED: 950376974, 694996921 (2) Diabetes ICD Codes: E11.9 - Type 2 diabetes mellitus without complications SNOMED: 70137078 (3) Hypertension ICD Codes: I10 - Essential (primary) hypertension SNOMED: 28865847 Qualifiers: Qualified Codes: I10 - Essential (primary) hypertension (4) Acute exacerbation of CHF (congestive heart failure) ICD Codes: I50.9 - Heart failure, unspecified SNOMED: 71896491 Qualifiers: Qualified Codes: I50.9 - Heart failure, unspecified (5) Rapid atrial fibrillation ICD Codes: I48.91 - Unspecified atrial fibrillation SNOMED: 418667053 Status: stable, progressing Assessment/Plan o2 pulm tx abx ot pt diet cbc bmp am dc plan w hh if clear Subjective Respiratory: Reports: shortness of breath Allergies: Coded Allergies: No Known Allergies (Unverified , 11/15/17) All Systems: reviewed and negative except above Subjective o2nc calm Objective Last 24 Hour Vital Signs Date Time Temp Pulse Resp B/P (MAP) Pulse Ox O2 Delivery O2 Flow Rate FiO2 11/17/17 09:00 Nasal Cannula 2.0 11/17/17 08:53 75 132/91 11/17/17 08:53 75 11/17/17 08:00 98.2 75 18 132/91 (105) 94 98.2 11/17/17 04:25 75 18 90 Room Air 21 11/17/17 04:00 98.8 66 20 159/93 (115) 98 98.8 11/17/17 04:00 88 11/17/17 00:00 92 11/17/17 00:00 96.2 76 19 134/84 (101) 93 96.2 11/16/17 21:00 Nasal Cannula 2.0 11/16/17 20:41 85 146/81 11/16/17 20:00 99 11/16/17 20:00 98.4 84 20 146/98 (114) 92 98.4 11/16/17 19:05 86 18 Nasal Cannula 2.0 28 11/16/17 16:00 95 11/16/17 16:00 98.4 50 18 157/74 (101) 94 98.4 10/7/18 12:00 97.9 76 20 133/75 (94) 93 97.9 11/16/17 12:00 97 Intake and Output 11/16/17 11/17/17 19:00 07:00 Intake Total 720 ml 400 ml Output Total 2700 ml 2150 ml Balance -1980 ml -1750 ml Intake Oral 720 ml 400 ml Output Urine Total 2700 ml 2150 ml Laboratory Tests 11/16/17 15:50: Activated Partial Thromboplast Time 80H 11/17/17 04:22: Activated Partial Thromboplast Time 99H, White Blood Count 8.4, Red Blood Count 5.26, Hemoglobin 15.4, Hematocrit 44.9, Mean Corpuscular Volume 85, Mean Corpuscular Hemoglobin 29.2, Mean Corpuscular Hemoglobin Concent 34.2, Red Cell Distribution Width 11.3L, Platelet Count 208, Mean Platelet Volume 6.9, Neutrophils (%) (Auto) 53.3, Lymphocytes (%) (Auto) 33.6, Monocytes (%) (Auto) 9.6, Eosinophils (%) (Auto) 2.7, Basophils (%) (Auto) 0.9, Sodium Level 139, Potassium Level 3.4L, Chloride Level 100, Carbon Dioxide Level 32, Anion Gap 7, Blood Urea Nitrogen 18, Creatinine 1.2, Estimat Glomerular Filtration Rate , Glucose Level 159H, Calcium Level 8.6 11/17/17 08:15: Troponin I 0.000 Height (Feet): 5 Height (Inches): 6.00 Weight (Pounds): 210 General Appearance: lethargic EENT: normal ENT inspection Neck: normal alignment Cardiovascular: normal peripheral pulses, normal rate, regular rhythm Respiratory/Chest: chest wall non-tender, lungs clear, normal breath sounds Abdomen: normal bowel sounds, non tender, soft Extremities: normal inspection Edema: no edema noted Arm (L), no edema noted Arm (R), no edema noted Leg (L), no edema noted Leg (R), no edema noted Pedal (L), no edema noted Pedal (R), no edema noted Generalized Neurologic: responsive, motor weakness Skin: normal pigmentation, warm/dry Vincent Adam DO Nov 17, 2017 11:45
[2017-11-17 12:00] VITALS: BP 128/72
--- NOTE | 2017-11-17 12:11 | Pulmonology Progress Note ---
Assessment/Plan Problems: (1) Rapid atrial fibrillation (2) Acute exacerbation of CHF (congestive heart failure) (3) Hypertension (4) Diabetes Assessment/Plan heart rate controlled, flutter at 80 less short of breath diuresing well check cxr today check bnp on heparin drip Subjective ROS Limited/Unobtainable: No Interval Events: less short of breath Allergies: Coded Allergies: No Known Allergies (Unverified , 11/15/17) Objective Last 24 Hour Vital Signs Date Time Temp Pulse Resp B/P (MAP) Pulse Ox O2 Delivery O2 Flow Rate FiO2 11/17/17 09:00 Nasal Cannula 2.0 11/17/17 08:53 75 132/91 11/17/17 08:53 75 11/17/17 08:00 98.2 75 18 132/91 (105) 94 98.2 11/17/17 04:25 75 18 90 Room Air 21 11/17/17 04:00 98.8 66 20 159/93 (115) 98 98.8 11/17/17 04:00 88 11/17/17 00:00 92 11/17/17 00:00 96.2 76 19 134/84 (101) 93 96.2 11/16/17 21:00 Nasal Cannula 2.0 11/16/17 20:41 85 146/81 11/16/17 20:00 99 11/16/17 20:00 98.4 84 20 146/98 (114) 92 98.4 11/16/17 19:05 86 18 Nasal Cannula 2.0 28 11/16/17 16:00 95 11/16/17 16:00 98.4 50 18 157/74 (101) 94 98.4 Intake and Output 11/16/17 11/17/17 19:00 07:00 Intake Total 720 ml 400 ml Output Total 2700 ml 2150 ml Balance -1980 ml -1750 ml Intake Oral 720 ml 400 ml Output Urine Total 2700 ml 2150 ml General Appearance: WD/WN HEENT: normocephalic, atraumatic, anicteric Respiratory/Chest: chest wall non-tender, lungs clear Cardiovascular: normal peripheral pulses, regular rhythm Abdomen: normal bowel sounds, soft, non tender Genitourinary: normal external genitalia Extremities: no cyanosis Skin: no lesions Laboratory Tests 11/16/17 15:50: Activated Partial Thromboplast Time 80H 11/17/17 04:22: Activated Partial Thromboplast Time 99H, White Blood Count 8.4, Red Blood Count 5.26, Hemoglobin 15.4, Hematocrit 44.9, Mean Corpuscular Volume 85, Mean Corpuscular Hemoglobin 29.2, Mean Corpuscular Hemoglobin Concent 34.2, Red Cell Distribution Width 11.3L, Platelet Count 208, Mean Platelet Volume 6.9, Neutrophils (%) (Auto) 53.3, Lymphocytes (%) (Auto) 33.6, Monocytes (%) (Auto) 9.6, Eosinophils (%) (Auto) 2.7, Basophils (%) (Auto) 0.9, Sodium Level 139, Potassium Level 3.4L, Chloride Level 100, Carbon Dioxide Level 32, Anion Gap 7, Blood Urea Nitrogen 18, Creatinine 1.2, Estimat Glomerular Filtration Rate , Glucose Level 159H, Calcium Level 8.6 11/17/17 08:15: Troponin I 0.000 Current Medications Medications (Trade) Dose Ordered Sig/Raheem Route PRN Reason Start Time Stop Time Status Last Admin Dose Admin Acetaminophen (Tylenol) 650 mg Q4H PRN ORAL FEVER 11/15/17 08:30 12/15/17 08:29 Albuterol/ Ipratropium (Albuterol/ Ipratropium) 3 ml EVERY 4 HOURS PRN HHN Shortness of Breath 11/15/17 08:30 11/20/17 08:29 11/17/17 04:25 Cephalexin (Keflex) 500 mg Q6HR ORAL 11/17/17 00:00 11/24/17 00:00 11/17/17 05:43 Dextrose (Dextrose 50%) 25 ml Q30M PRN IV Hypoglycemia 11/15/17 16:15 12/15/17 16:14 Dextrose (Dextrose 50%) 50 ml Q30M PRN IV Hypoglycemia 11/15/17 16:15 12/15/17 16:14 Digoxin (Lanoxin) 0.25 mg DAILY ORAL 11/16/17 09:00 12/16/17 08:59 11/17/17 08:53 Diltiazem HCl (Cardizem) 10 mg EVERY HOUR PRN IV heart rate more than 120, 11/15/17 08:30 12/15/17 08:29 11/16/17 09:43 Furosemide (Lasix) 40 mg BID IV 11/15/17 18:00 12/15/17 16:59 11/17/17 08:53 Heparin Sodium/ Dextrose 500 ml @ 26.671 mls/ hr ADJUST PER PROTOCOL IV 11/17/17 05:30 12/16/17 08:59 11/17/17 05:45 Insulin Aspart (NovoLOG) BEFORE MEALS AND HS SUBQ 11/15/17 16:30 12/15/17 16:29 11/17/17 05:44 Metoprolol Tartrate (Lopressor) 5 mg EVERY HOUR PRN IVP heart rate more than 140 11/15/17 08:30 12/15/17 08:29 Metoprolol Tartrate (Lopressor) 25 mg Q12HR ORAL 11/15/17 21:00 12/15/17 20:59 11/17/17 08:53 Morphine Sulfate (Morphine Sulfate) 2 mg EVERY 4 HOURS PRN IVP severe Pain (Pain Scale 7-10) 11/15/17 08:30 11/22/17 08:29 11/15/17 10:36 Nitroglycerin (Ntg) 0.4 mg Q5M PRN SL Prn Chest Pain 11/15/17 08:30 12/15/17 08:29 Ondansetron HCl (Zofran) 4 mg Q6H PRN IVP Nausea & Vomiting 11/15/17 08:30 12/15/17 08:29 Pantoprazole (Protonix) 40 mg DAILY ORAL 11/15/17 11:00 12/15/17 10:59 11/17/17 08:54 Polyethylene Glycol (Miralax) 17 gm DAILYPRN PRN ORAL Constipation 11/15/17 08:30 12/15/17 08:29 11/16/17 09:41 Temazepam (Restoril) 15 mg HSPRN PRN ORAL Insomnia 11/15/17 08:30 11/22/17 08:29 Glen Mcnally MD Nov 17, 2017 12:11
[2017-11-17 12:38] LABS: ALANINE AMINOTRANSFERASE 15 U/L (12-78); ALKALINE PHOSPHATASE 106 U/L (46-116); ASPARTATE AMINO TRANSFERASE 12 U/L (15-37); BILIRUBIN,DIRECT 0.1 MG/DL (0.0-0.3); BILIRUBIN,TOTAL 0.5 MG/DL (0.2-1.0)
--- NOTE | 2017-11-17 13:31 | Infectious Diseases Prog Note ---
Assessment/Plan Assessment/Plan 1. Probable uncomplicated urinary tract infection (history of dysuria x2 days prior to admission, despite of unremarkable urinalysis). 2. Status post leukocytosis (due to acute stress). 3. No cough or shortness of breath to indicate pneumonia. 11/15 CXR: Mild cardiomegaly with bilateral interstitial edema. Findings suggestive of congestive heart failure or volume overload. No definite airspace consolidation or pneumothorax. Hypertension. . CHF. . Diabetes. PLAN: 1. Continue patient on Keflex #1 for a total of five days. 2. Monitor CBC. 3. Monitor BMP. 4. Urine culture. 5. Based on the patient's clinical course and labs, we will do further recommendation. Thank you, Dr. Vincent Adam, for allowing me to participate in the care of this patient. I will follow the patient with you during this hospitalization. Subjective Allergies: Coded Allergies: No Known Allergies (Unverified , 11/15/17) Subjective afebrile leukocytosis resolved off abx Objective Vital Signs Last 24 Hour Vital Signs Date Time Temp Pulse Resp B/P (MAP) Pulse Ox O2 Delivery O2 Flow Rate FiO2 11/17/17 12:00 97.0 73 20 128/72 (90) 94 97.0 11/17/17 11:37 82 11/17/17 11:37 82 11/17/17 09:00 Nasal Cannula 2.0 11/17/17 08:53 75 132/91 11/17/17 08:53 75 11/17/17 08:00 98.2 75 18 132/91 (105) 94 98.2 11/17/17 07:36 95 11/17/17 04:25 75 18 90 Room Air 21 11/17/17 04:00 98.8 66 20 159/93 (115) 98 98.8 11/17/17 04:00 88 11/17/17 00:00 92 11/17/17 00:00 96.2 76 19 134/84 (101) 93 96.2 11/16/17 21:00 Nasal Cannula 2.0 11/16/17 20:41 85 146/81 11/16/17 20:00 99 11/16/17 20:00 98.4 84 20 146/98 (114) 92 98.4 11/16/17 19:05 86 18 Nasal Cannula 2.0 28 11/16/17 16:00 95 11/16/17 16:00 98.4 50 18 157/74 (101) 94 98.4 Height (Feet): 5 Height (Inches): 6.00 Weight (Pounds): 210 Objective General Appearance: lethargic EENT: normal ENT inspection Neck: normal alignment Cardiovascular: normal peripheral pulses, normal rate, regular rhythm Respiratory/Chest: chest wall non-tender, lungs clear, normal breath sounds Abdomen: normal bowel sounds, non tender, soft Extremities: normal inspection Edema: no edema noted Arm (L), no edema noted Arm (R), no edema noted Leg (L), no edema noted Leg (R), no edema noted Pedal (L), no edema noted Pedal (R), no edema noted Generalized Neurologic: responsive, motor weakness Skin: normal pigmentation, warm/dry Laboratory Tests Test 11/16/17 15:50 11/17/17 04:22 11/17/17 08:15 11/17/17 11:25 Activated Partial Thromboplast Time 80 SEC (23-33) H 99 SEC (23-33) H 83 SEC (23-33) H White Blood Count 8.4 K/UL (4.8-10.8) Red Blood Count 5.26 M/UL (4.70-6.10) Hemoglobin 15.4 G/DL (14.2-18.0) Hematocrit 44.9 % (42.0-52.0) Mean Corpuscular Volume 85 FL (80-99) Mean Corpuscular Hemoglobin 29.2 PG (27.0-31.0) Mean Corpuscular Hemoglobin Concent 34.2 G/DL (32.0-36.0) Red Cell Distribution Width 11.3 % (11.6-14.8) L Platelet Count 208 K/UL (150-450) Mean Platelet Volume 6.9 FL (6.5-10.1) Neutrophils (%) (Auto) 53.3 % (45.0-75.0) Lymphocytes (%) (Auto) 33.6 % (20.0-45.0) Monocytes (%) (Auto) 9.6 % (1.0-10.0) Eosinophils (%) (Auto) 2.7 % (0.0-3.0) Basophils (%) (Auto) 0.9 % (0.0-2.0) Sodium Level 139 MMOL/L (136-145) Potassium Level 3.4 MMOL/L (3.5-5.1) L Chloride Level 100 MMOL/L (98-107) Carbon Dioxide Level 32 MMOL/L (21-32) Anion Gap 7 mmol/L (5-15) Blood Urea Nitrogen 18 mg/dL (7-18) Creatinine 1.2 MG/DL (0.55-1.30) Estimat Glomerular Filtration Rate mL/min (>60) Glucose Level 159 MG/DL (74-106) H Calcium Level 8.6 MG/DL (8.5-10.1) Total Bilirubin 0.5 MG/DL (0.2-1.0) Direct Bilirubin 0.1 MG/DL (0.0-0.3) Aspartate Amino Transf (AST/SGOT) 12 U/L (15-37) L Alanine Aminotransferase (ALT/SGPT) 15 U/L (12-78) Alkaline Phosphatase 106 U/L (46-116) Total Protein 7.2 G/DL (6.4-8.2) Albumin 3.0 G/DL (3.4-5.0) L Troponin I 0.000 ng/mL (0.000-0.056) Current Medications Medications (Trade) Dose Ordered Sig/Raheem Route PRN Reason Start Time Stop Time Status Last Admin Dose Admin Acetaminophen (Tylenol) 650 mg Q4H PRN ORAL FEVER 11/15/17 08:30 12/15/17 08:29 Albuterol/ Ipratropium (Albuterol/ Ipratropium) 3 ml EVERY 4 HOURS PRN HHN Shortness of Breath 11/15/17 08:30 11/20/17 08:29 11/17/17 04:25 Cephalexin (Keflex) 500 mg Q6HR ORAL 11/17/17 00:00 11/24/17 00:00 11/17/17 12:15 Dextrose (Dextrose 50%) 25 ml Q30M PRN IV Hypoglycemia 11/15/17 16:15 12/15/17 16:14 Dextrose (Dextrose 50%) 50 ml Q30M PRN IV Hypoglycemia 11/15/17 16:15 12/15/17 16:14 Digoxin (Lanoxin) 0.25 mg DAILY ORAL 11/16/17 09:00 12/16/17 08:59 11/17/17 08:53 Diltiazem HCl (Cardizem) 10 mg EVERY HOUR PRN IV heart rate more than 120, 11/15/17 08:30 12/15/17 08:29 11/16/17 09:43 Furosemide (Lasix) 40 mg BID IV 11/15/17 18:00 12/15/17 16:59 11/17/17 08:53 Heparin Sodium/ Dextrose 500 ml @ 26.671 mls/ hr ADJUST PER PROTOCOL IV 11/17/17 05:30 12/16/17 08:59 11/17/17 05:45 Insulin Aspart (NovoLOG) BEFORE MEALS AND HS SUBQ 11/15/17 16:30 12/15/17 16:29 11/17/17 12:15 Metoprolol Tartrate (Lopressor) 5 mg EVERY HOUR PRN IVP heart rate more than 140 11/15/17 08:30 12/15/17 08:29 Metoprolol Tartrate (Lopressor) 25 mg Q12HR ORAL 11/15/17 21:00 12/15/17 20:59 11/17/17 08:53 Morphine Sulfate (Morphine Sulfate) 2 mg EVERY 4 HOURS PRN IVP severe Pain (Pain Scale 7-10) 11/15/17 08:30 11/22/17 08:29 11/15/17 10:36 Nitroglycerin (Ntg) 0.4 mg Q5M PRN SL Prn Chest Pain 11/15/17 08:30 12/15/17 08:29 Ondansetron HCl (Zofran) 4 mg Q6H PRN IVP Nausea & Vomiting 11/15/17 08:30 12/15/17 08:29 Pantoprazole (Protonix) 40 mg DAILY ORAL 11/15/17 11:00 12/15/17 10:59 11/17/17 08:54 Polyethylene Glycol (Miralax) 17 gm DAILYPRN PRN ORAL Constipation 11/15/17 08:30 12/15/17 08:29 11/16/17 09:41 Temazepam (Restoril) 15 mg HSPRN PRN ORAL Insomnia 11/15/17 08:30 11/22/17 08:29 Nicole Villalobos M.D. Nov 17, 2017 13:31
--- NOTE | 2017-11-17 14:15 | Consultation ---
DATE OF CONSULTATION: 11/17/2017 INFECTIOUS DISEASES CONSULTATION REQUESTING PHYSICIAN: Vincent Adam D.O. REASON FOR CONSULTATION: Evaluation of the patient for probable UTI and antibiotic management. HISTORY OF PRESENT ILLNESS: The patient is a 77-year-old with multiple medical problems as listed below, who was admitted to this medical center for shortness of breath. The patient was found to have atrial flutter and CHF. The patient has history of having urinary symptoms including dysuria prior to the admission. Infectious Disease consultation has been requested for further evaluation of the patient and antibiotic management. PAST MEDICAL HISTORY: 1. Hypertension. 2. CHF. 3. Diabetes. MEDICATIONS: Currently off of antibiotics. ALLERGIES: No known drug allergies. SOCIAL HISTORY: Negative for alcohol or drug abuse. FAMILY HISTORY: Not contributing. REVIEW OF SYSTEMS: A 10-point was done, except what has mentioned above has been negative. PHYSICAL EXAMINATION: VITAL SIGNS: Temperature 98.4 degrees, pulse 86, respiratory rate 18, and blood pressure 134/48. HEENT: No pale conjunctiva. No icterus. NECK: No lymphadenopathy. CHEST: No crackles. No wheezes. HEART: S1 and S2. ABDOMEN: Soft, nontender, and obese. GENITOURINARY: Alejo catheter in place. EXTREMITIES: No cyanosis. NEUROLOGIC: Awake and alert. LABORATORY AND DIAGNOSTIC DATA: White blood cells at the time of admission 11.9, today is 9.4; hemoglobin 14; and platelets 182,000. UA, 0 to 4 white blood cells. BUN 15 and creatinine 0.5. ALT, AST, and alkaline phosphatase unremarkable. CRP 3.5. Chest x-ray, mild cardiomegaly and bilateral interstitial edema. ASSESSMENT: The patient is a 77-year-old with: 1. Probable uncomplicated urinary tract infection (history of dysuria x2 days prior to admission, despite of unremarkable urinalysis). 2. Status post leukocytosis (due to acute stress). 3. No cough or shortness of breath to indicate pneumonia. PLAN: 1. We will start the patient on Keflex for a total of five days. 2. Monitor CBC. 3. Monitor BMP. 4. Urine culture. 5. Based on the patient's clinical course and labs, we will do further recommendation. Thank you, Dr. Vincent Adam, for allowing me to participate in the care of this patient. I will follow the patient with you during this hospitalization. Spenser Toure M.D. DR: Rachel JOB#: [id number] CC:
--- NOTE | 2017-11-17 14:22 | Cardiac Electrophysiology PN ---
Assessment/Plan Assessment/Plan 1. Atrial flutter with rapid ventricular response. Heart rate is better on digoxin 0.25 mg p.o. daily and metoprolol 50 mg b.i.d. Echocardiogram EF 55%.Dig level 0.7. Change heparin to Xarelto 20 daily 2. Congestive heart failure. EF 55%. On Lasix 40 mg IV b.i.d. 3. Hypertension. Continue metoprolol, and Lasix. Subjective Subjective hr BETTER BUT STILL IN ATRIAL FLUTTER. Objective Last 24 Hour Vital Signs Date Time Temp Pulse Resp B/P (MAP) Pulse Ox O2 Delivery O2 Flow Rate FiO2 11/17/17 12:00 97.0 73 20 128/72 (90) 94 97.0 11/17/17 11:37 82 11/17/17 11:37 82 11/17/17 09:00 Nasal Cannula 2.0 11/17/17 08:53 75 132/91 11/17/17 08:53 75 11/17/17 08:00 98.2 75 18 132/91 (105) 94 98.2 11/17/17 07:36 95 11/17/17 04:25 75 18 90 Room Air 21 11/17/17 04:00 98.8 66 20 159/93 (115) 98 98.8 11/17/17 04:00 88 11/17/17 00:00 92 11/17/17 00:00 96.2 76 19 134/84 (101) 93 96.2 11/16/17 21:00 Nasal Cannula 2.0 11/16/17 20:41 85 146/81 11/16/17 20:00 99 11/16/17 20:00 98.4 84 20 146/98 (114) 92 98.4 11/16/17 19:05 86 18 Nasal Cannula 2.0 28 11/16/17 16:00 95 11/16/17 16:00 98.4 50 18 157/74 (101) 94 98.4 Intake and Output 11/16/17 11/17/17 19:00 07:00 Intake Total 720 ml 400 ml Output Total 2700 ml 2150 ml Balance -1980 ml -1750 ml Intake Oral 720 ml 400 ml Output Urine Total 2700 ml 2150 ml Laboratory Tests Test 11/16/17 15:50 11/17/17 04:22 11/17/17 08:15 10/8/18 11:25 Activated Partial Thromboplast Time 80 SEC (23-33) H 99 SEC (23-33) H 83 SEC (23-33) H White Blood Count 8.4 K/UL (4.8-10.8) Red Blood Count 5.26 M/UL (4.70-6.10) Hemoglobin 15.4 G/DL (14.2-18.0) Hematocrit 44.9 % (42.0-52.0) Mean Corpuscular Volume 85 FL (80-99) Mean Corpuscular Hemoglobin 29.2 PG (27.0-31.0) Mean Corpuscular Hemoglobin Concent 34.2 G/DL (32.0-36.0) Red Cell Distribution Width 11.3 % (11.6-14.8) L Platelet Count 208 K/UL (150-450) Mean Platelet Volume 6.9 FL (6.5-10.1) Neutrophils (%) (Auto) 53.3 % (45.0-75.0) Lymphocytes (%) (Auto) 33.6 % (20.0-45.0) Monocytes (%) (Auto) 9.6 % (1.0-10.0) Eosinophils (%) (Auto) 2.7 % (0.0-3.0) Basophils (%) (Auto) 0.9 % (0.0-2.0) Sodium Level 139 MMOL/L (136-145) Potassium Level 3.4 MMOL/L (3.5-5.1) L Chloride Level 100 MMOL/L (98-107) Carbon Dioxide Level 32 MMOL/L (21-32) Anion Gap 7 mmol/L (5-15) Blood Urea Nitrogen 18 mg/dL (7-18) Creatinine 1.2 MG/DL (0.55-1.30) Estimat Glomerular Filtration Rate mL/min (>60) Glucose Level 159 MG/DL (74-106) H Calcium Level 8.6 MG/DL (8.5-10.1) Total Bilirubin 0.5 MG/DL (0.2-1.0) Direct Bilirubin 0.1 MG/DL (0.0-0.3) Aspartate Amino Transf (AST/SGOT) 12 U/L (15-37) L Alanine Aminotransferase (ALT/SGPT) 15 U/L (12-78) Alkaline Phosphatase 106 U/L (46-116) Total Protein 7.2 G/DL (6.4-8.2) Albumin 3.0 G/DL (3.4-5.0) L Troponin I 0.000 ng/mL (0.000-0.056) Objective HEAD AND NECK: Showed no JVD. LUNGS: Coarse rhonchi. CARDIOVASCULAR: Irregularly irregular, tachycardic. S1 and S2 with no gallop or murmur. ABDOMEN: Soft. EXTREMITIES: 1+ pitting edema. Pablo Sanford MD Nov 17, 2017 14:22
--- NOTE | 2017-11-17 14:44 | Cardiology Report ---
APPROVED REPORT EKG Measurement Heart [id number] Atrial flutter with variable AV block Prolonged QT Abnormal ECG
--- NOTE | 2017-11-17 14:47 | Cardiology Report ---
APPROVED REPORT EKG Measurement Heart [id number] Atrial flutter with 2:1 AV conduction Abnormal ECG
[2017-11-17 16:00] VITALS: BP 123/84
[2017-11-17] MEDS: Xarelto 10mg tab ORAL SCH (17:10)
[2017-11-17 20:00] VITALS: BP 138/74
[2017-11-18] VITALS: BP 134/87
[2017-11-18] MEDS: Cephalexin 500mg cap ORAL SCH ×4 (00:06→17:06)
[2017-11-18] MEDS: Morphine Sulfate 2mg/ml Inj IVP PRN (00:40)
[2017-11-18 04:33] VITALS: BP 134/84
[2017-11-18 06:08] LABS: BASOPHILS % (AUTO) 0.7 % (0.0-2.0); EOSINOPHILS % (AUTO) 1.5 % (0.0-3.0); HEMATOCRIT 45.9 % (42.0-52.0); LYMPHOCYTES % (AUTO) 18.4 % (20.0-45.0); MEAN CORPUSCULAR VOLUME 86 FL (80-99); MONOCYTES % (AUTO) 9.3 % (1.0-10.0); NEUTROPHILS % (AUTO) 70.1 % (45.0-75.0); PLATELET COUNT 208 K/UL (150-450); RED BLOOD COUNT 5.32 M/UL (4.70-6.10); RED CELL DISTRIBUTION WIDTH 11.6 % (11.6-14.8); WHITE BLOOD COUNT 9.6 K/UL (4.8-10.8)
[2017-11-18] MEDS: NovoLOG Insulin Flexpen SUBQ SCH ×3 (06:15→17:10)
[2017-11-18 06:36] LABS: ANION GAP 9 mmol/L (5-15); BLOOD UREA NITROGEN 22 mg/dL (7-18); CARBON DIOXIDE 30 MMOL/L (21-32); CHLORIDE 100 MMOL/L (98-107); CREATININE 1.1 MG/DL (0.55-1.30); POTASSIUM 3.8 MMOL/L (3.5-5.1); SODIUM 138 MMOL/L (136-145)
[2017-11-18 08:00] VITALS: BP 133/75
[2017-11-18] MEDS: Metoprolol 25mg tab ORAL SCH (09:32)
--- NOTE | 2017-11-18 11:33 | Pulmonology Progress Note ---
Assessment/Plan Problems: (1) Rapid atrial fibrillation (2) Acute exacerbation of CHF (congestive heart failure) (3) Hypertension (4) Diabetes Assessment/Plan improving heart rate controlled, flutter at 80 less short of breath diuresing well cxr much better check bnp on heparin drip Subjective Interval Events: doing better Constitutional: Reports: no symptoms HEENT: Repors: no symptoms Allergies: Coded Allergies: No Known Allergies (Unverified , 11/15/17) Objective Last 24 Hour Vital Signs Date Time Temp Pulse Resp B/P (MAP) Pulse Ox O2 Delivery O2 Flow Rate FiO2 11/18/17 09:32 80 133/75 11/18/17 09:32 80 11/18/17 09:00 Nasal Cannula 2.0 11/18/17 08:00 97.7 80 21 133/75 (94) 96 97.7 11/18/17 07:40 93 11/18/17 04:33 98.0 77 19 134/84 (101) 96 98.0 11/18/17 04:02 89 11/18/17 00:06 72 11/18/17 00:00 98.0 77 19 134/87 (103) 96 98.0 11/17/17 21:54 Nasal Cannula 2.0 11/17/17 20:30 100 123/84 11/17/17 20:00 98.0 65 20 138/74 (95) 96 98.0 11/17/17 19:43 90 11/17/17 16:00 97.4 79 16 123/84 (97) 96 97.4 11/17/17 15:53 85 11/17/17 12:00 97.0 73 20 128/72 (90) 94 97.0 11/17/17 11:37 82 11/17/17 11:37 82 Intake and Output 11/17/17 11/18/17 19:00 07:00 Intake Total 720 ml 240 ml Output Total 800 ml 1100 ml Balance -80 ml -860 ml Intake Oral 720 ml 240 ml Output Urine Total 800 ml 1100 ml # Bowel Movements 1 General Appearance: WD/WN HEENT: normocephalic, atraumatic Respiratory/Chest: chest wall non-tender, lungs clear Cardiovascular: normal peripheral pulses, normal rate, no JVD Abdomen: normal bowel sounds, soft, non tender Extremities: no cyanosis 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 Laboratory Tests 11/18/17 05:35: White Blood Count 9.6, Red Blood Count 5.32, Hemoglobin 16.0, Hematocrit 45.9, Mean Corpuscular Volume 86, Mean Corpuscular Hemoglobin 30.0, Mean Corpuscular Hemoglobin Concent 34.8, Red Cell Distribution Width 11.6, Platelet Count 208, Mean Platelet Volume 7.4, Neutrophils (%) (Auto) 70.1, Lymphocytes (%) (Auto) 18.4L, Monocytes (%) (Auto) 9.3, Eosinophils (%) (Auto) 1.5, Basophils (%) (Auto ) 0.7, Sodium Level 138, Potassium Level 3.8, Chloride Level 100, Carbon Dioxide Level 30, Anion Gap 9, Blood Urea Nitrogen 22H, Creatinine 1.1, Estimat Glomerular Filtration Rate , Glucose Level 172H, Calcium Level 9.0, Pro-B-Type Natriuretic Peptide 1247H Current Medications Medications (Trade) Dose Ordered Sig/Raheem Route PRN Reason Start Time Stop Time Status Last Admin Dose Admin Acetaminophen (Tylenol) 650 mg Q4H PRN ORAL FEVER 11/15/17 08:30 12/15/17 08:29 Albuterol/ Ipratropium (Albuterol/ Ipratropium) 3 ml EVERY 4 HOURS PRN HHN Shortness of Breath 11/15/17 08:30 11/20/17 08:29 11/17/17 04:25 Cephalexin (Keflex) 500 mg Q6HR ORAL 11/17/17 00:00 11/24/17 00:00 11/18/17 11:25 Dextrose (Dextrose 50%) 25 ml Q30M PRN IV Hypoglycemia 11/15/17 16:15 12/15/17 16:14 Dextrose (Dextrose 50%) 50 ml Q30M PRN IV Hypoglycemia 11/15/17 16:15 12/15/17 16:14 Digoxin (Lanoxin) 0.25 mg DAILY ORAL 11/16/17 09:00 12/16/17 08:59 11/18/17 09:32 Diltiazem HCl (Cardizem) 10 mg EVERY HOUR PRN IV heart rate more than 120, 11/15/17 08:30 12/15/17 08:29 11/16/17 09:43 Furosemide (Lasix) 40 mg BID IV 11/15/17 18:00 12/15/17 16:59 11/18/17 09:32 Insulin Aspart (NovoLOG) BEFORE MEALS AND HS SUBQ 11/15/17 16:30 12/15/17 16:29 11/18/17 11:25 Metoprolol Tartrate (Lopressor) 5 mg EVERY HOUR PRN IVP heart rate more than 140 11/15/17 08:30 12/15/17 08:29 Metoprolol Tartrate (Lopressor) 25 mg Q12HR ORAL 11/15/17 21:00 12/15/17 20:59 11/18/17 09:32 Morphine Sulfate (Morphine Sulfate) 2 mg EVERY 4 HOURS PRN IVP severe Pain (Pain Scale 7-10) 11/15/17 08:30 11/22/17 08:29 11/18/17 00:40 Nitroglycerin (Ntg) 0.4 mg Q5M PRN SL Prn Chest Pain 11/15/17 08:30 12/15/17 08:29 Ondansetron HCl (Zofran) 4 mg Q6H PRN IVP Nausea & Vomiting 11/15/17 08:30 12/15/17 08:29 Pantoprazole (Protonix) 40 mg DAILY ORAL 11/15/17 11:00 12/15/17 10:59 11/18/17 09:31 Polyethylene Glycol (Miralax) 17 gm DAILYPRN PRN ORAL Constipation 11/15/17 08:30 12/15/17 08:29 11/16/17 09:41 Rivaroxaban (Xarelto) 20 mg DAILY@1800 ORAL 11/17/17 18:00 12/17/17 17:59 11/17/17 17:10 Temazepam (Restoril) 15 mg HSPRN PRN ORAL Insomnia 11/15/17 08:30 11/22/17 08:29 Glen Mcnally MD Nov 18, 2017 11:33
--- NOTE | 2017-11-18 12:20 | Infectious Diseases Prog Note ---
Assessment/Plan Assessment/Plan 1. Probable uncomplicated urinary tract infection (history of dysuria x2 days prior to admission, despite of unremarkable urinalysis). 2. Status post leukocytosis (due to acute stress). 3. No cough or shortness of breath to indicate pneumonia. 11/15 CXR: Mild cardiomegaly with bilateral interstitial edema. Findings suggestive of congestive heart failure or volume overload. No definite airspace consolidation or pneumothorax. Hypertension. . CHF. . Diabetes. PLAN: 1. Continue patient on Keflex #2 for a total of five days. 2. Monitor CBC. 3. Monitor BMP. 4. Urine culture. 5. Based on the patient's clinical course and labs, we will do further recommendation. Thank you, Dr. Vincent Adam, for allowing me to participate in the care of this patient. I will follow the patient with you during this hospitalization. Subjective Allergies: Coded Allergies: No Known Allergies (Unverified , 11/15/17) Subjective afebrile no leukocytosis Objective Vital Signs Last 24 Hour Vital Signs Date Time Temp Pulse Resp B/P (MAP) Pulse Ox O2 Delivery O2 Flow Rate FiO2 11/18/17 09:32 80 133/75 11/18/17 09:32 80 11/18/17 09:00 Nasal Cannula 2.0 11/18/17 08:00 97.7 80 21 133/75 (94) 96 97.7 11/18/17 07:40 93 11/18/17 04:33 98.0 77 19 134/84 (101) 96 98.0 11/18/17 04:02 89 11/18/17 00:06 72 11/18/17 00:00 98.0 77 19 134/87 (103) 96 98.0 11/17/17 21:54 Nasal Cannula 2.0 11/17/17 20:30 100 123/84 11/17/17 20:00 98.0 65 20 138/74 (95) 96 98.0 11/17/17 19:43 90 11/17/17 16:00 97.4 79 16 123/84 (97) 96 97.4 11/17/17 15:53 85 Height (Feet): 5 Height (Inches): 6.00 Weight (Pounds): 210 Objective General Appearance: lethargic EENT: normal ENT inspection Neck: normal alignment Cardiovascular: normal peripheral pulses, normal rate, regular rhythm Respiratory/Chest: chest wall non-tender, lungs clear, normal breath sounds Abdomen: normal bowel sounds, non tender, soft Extremities: normal inspection Edema: no edema noted Arm (L), no edema noted Arm (R), no edema noted Leg (L), no edema noted Leg (R), no edema noted Pedal (L), no edema noted Pedal (R), no edema noted Generalized Neurologic: responsive, motor weakness Skin: normal pigmentation, warm/dry Laboratory Tests Test 11/18/17 05:35 White Blood Count 9.6 K/UL (4.8-10.8) Red Blood Count 5.32 M/UL (4.70-6.10) Hemoglobin 16.0 G/DL (14.2-18.0) Hematocrit 45.9 % (42.0-52.0) Mean Corpuscular Volume 86 FL (80-99) Mean Corpuscular Hemoglobin 30.0 PG (27.0-31.0) Mean Corpuscular Hemoglobin Concent 34.8 G/DL (32.0-36.0) Red Cell Distribution Width 11.6 % (11.6-14.8) Platelet Count 208 K/UL (150-450) Mean Platelet Volume 7.4 FL (6.5-10.1) Neutrophils (%) (Auto) 70.1 % (45.0-75.0) Lymphocytes (%) (Auto) 18.4 % (20.0-45.0) L Monocytes (%) (Auto) 9.3 % (1.0-10.0) Eosinophils (%) (Auto) 1.5 % (0.0-3.0) Basophils (%) (Auto) 0.7 % (0.0-2.0) Sodium Level 138 MMOL/L (136-145) Potassium Level 3.8 MMOL/L (3.5-5.1) Chloride Level 100 MMOL/L (98-107) Carbon Dioxide Level 30 MMOL/L (21-32) Anion Gap 9 mmol/L (5-15) Blood Urea Nitrogen 22 mg/dL (7-18) H Creatinine 1.1 MG/DL (0.55-1.30) Estimat Glomerular Filtration Rate mL/min (>60) Glucose Level 172 MG/DL (74-106) H Calcium Level 9.0 MG/DL (8.5-10.1) Pro-B-Type Natriuretic Peptide 1247 pg/mL (0-125) H Current Medications Medications (Trade) Dose Ordered Sig/Raheem Route PRN Reason Start Time Stop Time Status Last Admin Dose Admin Acetaminophen (Tylenol) 650 mg Q4H PRN ORAL FEVER 11/15/17 08:30 12/15/17 08:29 Albuterol/ Ipratropium (Albuterol/ Ipratropium) 3 ml EVERY 4 HOURS PRN HHN Shortness of Breath 11/15/17 08:30 11/20/17 08:29 11/17/17 04:25 Cephalexin (Keflex) 500 mg Q6HR ORAL 11/17/17 00:00 11/24/17 00:00 11/18/17 11:25 Dextrose (Dextrose 50%) 25 ml Q30M PRN IV Hypoglycemia 11/15/17 16:15 12/15/17 16:14 Dextrose (Dextrose 50%) 50 ml Q30M PRN IV Hypoglycemia 11/15/17 16:15 12/15/17 16:14 Digoxin (Lanoxin) 0.25 mg DAILY ORAL 11/16/17 09:00 12/16/17 08:59 11/18/17 09:32 Diltiazem HCl (Cardizem) 10 mg EVERY HOUR PRN IV heart rate more than 120, 11/15/17 08:30 12/15/17 08:29 11/16/17 09:43 Furosemide (Lasix) 40 mg BID IV 11/15/17 18:00 12/15/17 16:59 11/18/17 09:32 Insulin Aspart (NovoLOG) BEFORE MEALS AND HS SUBQ 11/15/17 16:30 12/15/17 16:29 11/18/17 11:25 Metoprolol Tartrate (Lopressor) 5 mg EVERY HOUR PRN IVP heart rate more than 140 11/15/17 08:30 12/15/17 08:29 Metoprolol Tartrate (Lopressor) 25 mg Q12HR ORAL 11/15/17 21:00 12/15/17 20:59 11/18/17 09:32 Morphine Sulfate (Morphine Sulfate) 2 mg EVERY 4 HOURS PRN IVP severe Pain (Pain Scale 7-10) 11/15/17 08:30 11/22/17 08:29 11/18/17 00:40 Nitroglycerin (Ntg) 0.4 mg Q5M PRN SL Prn Chest Pain 11/15/17 08:30 12/15/17 08:29 Ondansetron HCl (Zofran) 4 mg Q6H PRN IVP Nausea & Vomiting 11/15/17 08:30 12/15/17 08:29 Pantoprazole (Protonix) 40 mg DAILY ORAL 11/15/17 11:00 12/15/17 10:59 11/18/17 09:31 Polyethylene Glycol (Miralax) 17 gm DAILYPRN PRN ORAL Constipation 11/15/17 08:30 12/15/17 08:29 11/16/17 09:41 Rivaroxaban (Xarelto) 20 mg DAILY@1800 ORAL 11/17/17 18:00 12/17/17 17:59 11/17/17 17:10 Temazepam (Restoril) 15 mg HSPRN PRN ORAL Insomnia 11/15/17 08:30 11/22/17 08:29 Nicole Villalobos M.D. Nov 18, 2017 12:20
--- NOTE | 2017-11-18 13:27 | Diagnostic Imaging Report ---
Indication: Dyspnea Comparison: 11/15/2017 A single view chest radiograph was obtained. Findings: Previously demonstrated interstitial edema has largely resolved. Currently is a parenchymal density at the left lung base partly silhouetting the left hemidiaphragm. The heart is enlarged. The bones appear osteopenic. IMPRESSION: Interval resolution of interstitial edema and CHF. Persistent left basilar parenchymal opacity. Consider pneumonia or atelectasis. Correlate clinically.
--- NOTE | 2017-11-18 14:26 | General Progress Note ---
Assessment/Plan Problem List: (1) Edema ICD Codes: R60.9 - Edema, unspecified SNOMED: 569226789, 715518163 (2) Diabetes ICD Codes: E11.9 - Type 2 diabetes mellitus without complications SNOMED: 66495047 (3) Hypertension ICD Codes: I10 - Essential (primary) hypertension SNOMED: 28559446 Qualifiers: Qualified Codes: I10 - Essential (primary) hypertension (4) Acute exacerbation of CHF (congestive heart failure) ICD Codes: I50.9 - Heart failure, unspecified SNOMED: 32924401 Qualifiers: Qualified Codes: I50.9 - Heart failure, unspecified (5) Rapid atrial fibrillation ICD Codes: I48.91 - Unspecified atrial fibrillation SNOMED: 093279526 Status: stable, progressing Assessment/Plan o2 pulm tx abx ot pt diet dc w hh if clear Subjective Constitutional: Reports: weakness Allergies: Coded Allergies: No Known Allergies (Unverified , 11/15/17) All Systems: reviewed and negative except above Subjective o2nc calm Objective Last 24 Hour Vital Signs Date Time Temp Pulse Resp B/P (MAP) Pulse Ox O2 Delivery O2 Flow Rate FiO2 11/18/17 09:32 80 133/75 11/18/17 09:32 80 11/18/17 09:00 Nasal Cannula 2.0 11/18/17 08:00 97.7 80 21 133/75 (94) 96 97.7 11/18/17 07:40 93 11/18/17 04:33 98.0 77 19 134/84 (101) 96 98.0 11/18/17 04:02 89 11/18/17 00:06 72 11/18/17 00:00 98.0 77 19 134/87 (103) 96 98.0 11/17/17 21:54 Nasal Cannula 2.0 11/17/17 20:30 100 123/84 11/17/17 20:00 98.0 65 20 138/74 (95) 96 98.0 11/17/17 19:43 90 11/17/17 16:00 97.4 79 16 123/84 (97) 96 97.4 11/17/17 15:53 85 Intake and Output 11/17/17 11/18/17 19:00 07:00 Intake Total 720 ml 240 ml Output Total 800 ml 1100 ml Balance -80 ml -860 ml Intake Oral 720 ml 240 ml Output Urine Total 800 ml 1100 ml # Bowel Movements 1 Laboratory Tests 11/18/17 05:35: White Blood Count 9.6, Red Blood Count 5.32, Hemoglobin 16.0, Hematocrit 45.9, Mean Corpuscular Volume 86, Mean Corpuscular Hemoglobin 30.0, Mean Corpuscular Hemoglobin Concent 34.8, Red Cell Distribution Width 11.6, Platelet Count 208, Mean Platelet Volume 7.4, Neutrophils (%) (Auto) 70.1, Lymphocytes (%) (Auto) 18.4L, Monocytes (%) (Auto) 9.3, Eosinophils (%) (Auto) 1.5, Basophils (%) (Auto ) 0.7, Sodium Level 138, Potassium Level 3.8, Chloride Level 100, Carbon Dioxide Level 30, Anion Gap 9, Blood Urea Nitrogen 22H, Creatinine 1.1, Estimat Glomerular Filtration Rate , Glucose Level 172H, Calcium Level 9.0, Pro-B-Type Natriuretic Peptide 1247H Height (Feet): 5 Height (Inches): 6.00 Weight (Pounds): 210 General Appearance: alert EENT: normal ENT inspection Neck: normal alignment Cardiovascular: normal peripheral pulses, normal rate, regular rhythm Respiratory/Chest: chest wall non-tender, lungs clear, normal breath sounds Abdomen: normal bowel sounds, non tender, soft Extremities: normal inspection Edema: no edema noted Arm (L), no edema noted Arm (R), no edema noted Leg (L), no edema noted Leg (R), no edema noted Pedal (L), no edema noted Pedal (R), no edema noted Generalized Neurologic: responsive, motor weakness Skin: normal pigmentation, warm/dry Vincent Adam DO Nov 18, 2017 14:26
--- NOTE | 2017-11-18 15:20 | Cardiac Electrophysiology PN ---
Assessment/Plan Assessment/Plan 1. Atrial flutter with rapid ventricular response. Heart rate is better on digoxin 0.25 mg p.o. daily and metoprolol 50 mg b.i.d. Echocardiogram EF 55%.Dig level 0.7. On Xarelto 20 daily Will benefit from Flutter ablation as out patient 2. Congestive heart failure. EF 55%. On Lasix 40 mg IV b.i.d. 3. Hypertension. Continue metoprolol, and Lasix. 4. UTI Subjective Subjective In Atrial flutter with rate 70s Objective Last 24 Hour Vital Signs Date Time Temp Pulse Resp B/P (MAP) Pulse Ox O2 Delivery O2 Flow Rate FiO2 11/18/17 09:32 80 133/75 11/18/17 09:32 80 11/18/17 09:00 Nasal Cannula 2.0 11/18/17 08:00 97.7 80 21 133/75 (94) 96 97.7 11/18/17 07:40 93 11/18/17 04:33 98.0 77 19 134/84 (101) 96 98.0 11/18/17 04:02 89 11/18/17 00:06 72 11/18/17 00:00 98.0 77 19 134/87 (103) 96 98.0 11/17/17 21:54 Nasal Cannula 2.0 11/17/17 20:30 100 123/84 11/17/17 20:00 98.0 65 20 138/74 (95) 96 98.0 11/17/17 19:43 90 11/17/17 16:00 97.4 79 16 123/84 (97) 96 97.4 11/17/17 15:53 85 Intake and Output 11/17/17 11/18/17 19:00 07:00 Intake Total 720 ml 240 ml Output Total 800 ml 1100 ml Balance -80 ml -860 ml Intake Oral 720 ml 240 ml Output Urine Total 800 ml 1100 ml # Bowel Movements 1 Laboratory Tests Test 11/18/17 05:35 White Blood Count 9.6 K/UL (4.8-10.8) Red Blood Count 5.32 M/UL (4.70-6.10) Hemoglobin 16.0 G/DL (14.2-18.0) Hematocrit 45.9 % (42.0-52.0) Mean Corpuscular Volume 86 FL (80-99) Mean Corpuscular Hemoglobin 30.0 PG (27.0-31.0) Mean Corpuscular Hemoglobin Concent 34.8 G/DL (32.0-36.0) Red Cell Distribution Width 11.6 % (11.6-14.8) Platelet Count 208 K/UL (150-450) Mean Platelet Volume 7.4 FL (6.5-10.1) Neutrophils (%) (Auto) 70.1 % (45.0-75.0) Lymphocytes (%) (Auto) 18.4 % (20.0-45.0) L Monocytes (%) (Auto) 9.3 % (1.0-10.0) Eosinophils (%) (Auto) 1.5 % (0.0-3.0) Basophils (%) (Auto) 0.7 % (0.0-2.0) Sodium Level 138 MMOL/L (136-145) Potassium Level 3.8 MMOL/L (3.5-5.1) Chloride Level 100 MMOL/L (98-107) Carbon Dioxide Level 30 MMOL/L (21-32) Anion Gap 9 mmol/L (5-15) Blood Urea Nitrogen 22 mg/dL (7-18) H Creatinine 1.1 MG/DL (0.55-1.30) Estimat Glomerular Filtration Rate mL/min (>60) Glucose Level 172 MG/DL (74-106) H Calcium Level 9.0 MG/DL (8.5-10.1) Pro-B-Type Natriuretic Peptide 1247 pg/mL (0-125) H Objective HEAD AND NECK: Showed no JVD. LUNGS: Coarse rhonchi. CARDIOVASCULAR: Irregularly irregular S1 and S2 with no gallop or murmur. ABDOMEN: Soft. EXTREMITIES: 1+ pitting edema. Pablo Sanford MD Nov 18, 2017 15:20
[2017-11-18 16:00] VITALS: BP 127/72
[2017-11-18] MEDS: Xarelto 10mg tab ORAL SCH (17:06)
--- NOTE | 2017-11-19 15:22 | Cardiology Report ---
APPROVED REPORT EKG Measurement Heart [id number] Atrial fibrillation Rightward axis Prolonged QT Abnormal ECG
--- NOTE | 2017-11-21 07:13 | Discharge Summary ---
Discharge Summary Discharge Summary _ DATE OF ADMISSION: 11/15/2017 DATE OF DISCHARGE: 11/18/2017 REASON FOR ADMISSION: 77 years old male with past medical history of diabetes mellitus, hypertension , CVA with left-sided weakness, presented to emergency department with complaint of shortness of breath. Patient reported increased shortness of breath for about a month, which was getting progressively worse. Patient reported inability to lay flat. Shortness of breath was worse with exertion. Patient reported some weight gain for the last month. Patient also reported dysuria for the last two days and suprapubic discomfort. Per paramedics, patient had decreased breath sounds and was slightly wheezing, patient received nebulizing treatment with bronchodilator en route to the hospital with some improvement. Patient denied syncope, but reported dizziness and weakness. No chest pain. No nausea. no vomiting. Upon evaluation patient found to be tachycardic with heart rate 140 , tachypneic t with respiratory rate 27 , blood pressure was elevated 160/96. Laboratory workup revealed mild leukocytosis , stable hemoglobin and hematocrit. Stable electrolytes and renal parameters. Glucose 237. Troponin negative. EKG revealed atrial flutter with rapid ventricular response. Pro BNP 2447. Chest x-ray revealed interstitial congestion, consistent with congestive heart failure. Urinalysis was negative. Patient admitted with diagnoses of atrial flutter with rapid ventricular response, acute CHF exacerbation, hypertension, diabetes mellitus, probable UTI CONSULTANTS: ski molder Dr. Sanford pulmonary Dr. Mcnally ID specialist Dr. Toure [facility] COURSE: Patient admitted to telemetry floor. Patient initially was given one dose of Cardizem for rate control and then started on beta hu and digoxin. Heart rate controlled. Bank Secrecy Act Officer closely followed. For anticoagulation, patient was started on heparin drip and subsequently converted to oral Xarelto. Patient started on intravenous Lasix. Volumes and cardiorenal parameters were closely monitored. Renal parameters remained stable. As well as well as evidence of [id number] aortic insufficiency. Supplemental oxygen provided as needed to keep pulse oximetry above 92%. Pulmonary toilet provided as needed. [employer] closely followed. Follow-up chest x-ray revealed resolution of congestive heart failure. Pro BNP trended down from initial 2447 down to 1247. Serial troponin 2 were negative. Patient was ruled out for acute coronary syndrome by negative troponin and lack of ischemic changes on EKG. Blood pressure was managed with beta hu and Lasix, and remained stable. TSH was within normal limits. Blood sugar was managed with sliding scale insulin. GI prophylaxis provided. Infectious disease specialist followed. Patient initially presented with leukocytosis and reported 2 days of dysuria and suprapubic discomfort. Urinalysis was unremarkable. Per infectious disease specialist recommendation, patient was started on empiric antibiotics. Patient likely had uncomplicated urinary tract infection despite negative urinalysis. Urine culture was not collected. Leukocytosis resolved, and likely was reactive, no fevers. Pain management was addressed, and pain was controlled. Patient was working as a physical and occupational therapists. Patient clinically improved and was stable for discharge home with home health services. Bank Secrecy Act Officer advised that the patient will benefit from flutter ablation. FINAL DIAGNOSES: Atrial flutter with rapid ventricular response Acute CHF exacerbation Hypertension Probable uncomplicated UTI Diabetes mellitus DISCHARGE MEDICATIONS: See Medication Reconciliation list. DISCHARGE INSTRUCTIONS: Patient was discharged home with home health services. Follow up with primary care provider in one week. Consider flutter ablation as recommended by ski molder. I have been assigned to dictate discharge summary for this account. I was not involved in the patient's management. Peyton Fishman NP Nov 21, 2017 07:13
== END 2017-11-18 18:48 | disposition home health service (06) | DRG 292 ==
LOC: EDSEX 05:45 → EDBD 05:45 → EMR 07:00 → EDBEDREQSVC 07:14 → 2E 07:14 → EDBEDREQSVC 13:07 → EDBEDREQ 13:21 → 2E 16:43
DX: I11.0 Hypertensive heart disease with heart failure (principal); I48.92 Unspecified atrial flutter; N39.0 Urinary tract infection, site not specified; I50.9 Heart failure, unspecified; E11.9 Type 2 diabetes mellitus without complications; I48.91 Unspecified atrial fibrillation; Z86.73 Personal history of transient ischemic attack (TIA), and cerebral infarction without residual deficits
CPT/HCPCS: 36415; 51702; 71045; 80048; 80053; 80061; 80076; 80162; 81003; 82550; 82553; 82962; 83880; 84443; 84484; 85025; 85610; 85730; 86140; 93005; 93306; 94640; 94664; 96374; 96375; 96376; 99291; J1815; J2405; J7620; J8499